=== PATIENT | male | born 1985 | race Caucasian/White ===

== ENCOUNTER 2018-07-20 20:54 | Emergency (ER) | payer OTHER ==
[2018-07-20] MEDS ORDERED: Lidocaine 1% 10 ML MDV INJECT ONE (20:57)
[2018-07-20] MEDS ORDERED: Diphtheria,Pertussis(Acell),Tetanus Vaccine 0.5 ML Syringe IM ONE (20:57)
--- NOTE | 2018-07-20 20:59 | EDM.PDOC ---
ED HPI GENERAL MEDICAL PROBLEM - General Stated Complaint: LACERATION ON HAND Time Seen by Provider: 07/20/18 20:59 Source of Information: Reports: Patient - History of Present Illness INITIAL COMMENTS - FREE TEXT/NARRATIVE: HISTORY AND PHYSICAL: History of present illness: [Patient presents with a puncture wound on the webbing between thumb and index finger from 48 hours prior, he was working on his pickup and stuck a PICC into his skin there is some mild redness and tenderness there is no exudate or open lesion no bleeding no fever nausea vomiting chills sweats ] Review of systems: As per history of present illness and below otherwise all systems reviewed and negative. Past medical history: As per history of present illness and as reviewed below otherwise noncontributory. Surgical history: As per history of present illness and as reviewed below otherwise noncontributory. Social history: No reported history of drug or alcohol abuse. Family history: As per history of present illness and as reviewed below otherwise noncontributory. Physical exam: HEENT: Atraumatic, normocephalic, pupils reactive, negative for conjunctival pallor or scleral icterus, mucous membranes moist, throat clear, neck supple, nontender, trachea midline. Lungs: Clear to auscultation, breath sounds equal bilaterally, chest nontender. Heart: S1S2, regular, negative for clicks, rubs, or JVD. Abdomen: Soft, nondistended, nontender. Negative for masses or hepatosplenomegaly. Negative for costovertebral tenderness. Pelvis: Stable nontender. Genitourinary: Deferred. Rectal: Deferred. Extremities: Atraumatic, negative for cords or calf pain. Neurovascular unremarkable. Neuro: Awake, alert, oriented. Cranial nerves II through XII unremarkable. Cerebellum unremarkable. Motor and sensory unremarkable throughout. Exam nonfocal. In as per history of present illness otherwise unremarkable Diagnostics: [] clinical Therapeutics: [] Keflex 500 by mouth twice a day #20 no refill Tetanus status is updated Impression: puncture wound ] Definitive disposition and diagnosis as appropriate pending reevaluation and review of above. Left Arm Pain Score (Numeric/FACES): 2 - Related Data Allergies Allergy/AdvReac Type Severity Reaction Status Date / Time No Known Allergies Allergy Verified 07/20/18 21:12 Home Meds: Home Meds . [No Known Home Meds] 07/20/18 [History] ED ROS GENERAL - Review of Systems Review Of Systems: See Below ED EXAM, GENERAL - Physical Exam Exam: See Below Course - Vital Signs Last Recorded V/S: Last Vital Signs Temp 98.0 F 07/20/18 21:00 Pulse 100 07/20/18 21:00 Resp 18 07/20/18 21:00 BP 178/109 H 07/20/18 21:00 Pulse Ox 100 07/20/18 21:00 - Orders/Labs/Meds Orders: Active Orders 24 hr Category Date Time Status EKG 12 Lead [EKG Documentation Completion] [RC] STAT Care 07/20/18 21:16 Active Vaccines to be Administered [RC] PER UNIT ROUTINE Care 07/20/18 20:57 Active Meds: Medications Discontinued Medications Generic Name Dose Route Start Last Admin Trade Name Freq PRN Reason Stop Dose Admin Diphtheria/Tetanus/Acell Pertussis 0.5 ml 07/20/18 20:57 Adacel IM 07/20/18 20:58 .ONCE ONE Lidocaine HCl 10 ml 07/20/18 20:57 Xylocaine 1% INJECT 07/20/18 20:58 ONETIME ONE Departure - Departure Time of Disposition: 21:21 Disposition: Home, Self-Care 01 Condition: Good Clinical Impression: Puncture wound - injury - Discharge Information Referrals: PCP,None [Primary Care Provider] - Additional Instructions: The following information is given to patients seen in the emergency department who are being discharged to home. This information is to outline your options for follow-up care. We provide all patients seen in our emergency department with a follow-up referral. The need for follow-up, as well as the timing and circumstances, are variable depending upon the specifics of your emergency department visit. If you don't have a primary care physician on staff, we will provide you with a referral. We always advise you to contact your personal physician following an emergency department visit to inform them of the circumstance of the visit and for follow-up with them and/or the need for any referrals to a consulting specialist. The emergency department will also refer you to a specialist when appropriate. This referral assures that you have the opportunity for follow-up care with a specialist. All of these measure are taken in an effort to provide you with optimal care, which includes your follow-up. Under all circumstances we always encourage you to contact your private physician who remains a resource for coordinating your care. When calling for follow-up care, please make the office aware that this follow-up is from your recent emergency room visit. If for any reason you are refused follow-up, please contact the [facility] emergency department at and asked to speak to the emergency department charge nurse. - My Orders Last 24 Hours: My Active Orders 07/20/18 20:57 Vaccines to be Administered [RC] PER UNIT ROUTINE 07/20/18 21:16 EKG 12 Lead [EKG Documentation Completion] [RC] STAT - Assessment/Plan Last 24 Hours: My Active Orders 07/20/18 20:57 Vaccines to be Administered [RC] PER UNIT ROUTINE 07/20/18 21:16 EKG 12 Lead [EKG Documentation Completion] [RC] STAT
== END 2018-07-20 21:41 | disposition home or self-care (01) ==
LOC: MW.ED 20:54
DX: S61.432A Puncture wound without foreign body of left hand, initial encounter (principal); W22.8XXA Striking against or struck by other objects, initial encounter; Z23 Encounter for immunization
CPT/HCPCS: 90471; 90715; 93005; 99283; 99283-25

== ENCOUNTER 2018-07-23 22:52 | Emergency (ER) | payer OTHER ==
--- NOTE | 2018-07-23 23:08 | EDM.PDOC ---
ED HPI GENERAL MEDICAL PROBLEM - General Chief Complaint: General Stated Complaint: PT HAS BODY PAIN Time Seen by Provider: 07/23/18 23:07 Source of Information: Reports: Patient - History of Present Illness INITIAL COMMENTS - FREE TEXT/NARRATIVE: HISTORY AND PHYSICAL: History of present illness: [Patient presents as he is concerned about tetanus], he has previous puncture wound on July 20 he did receive a tetanus update at that time and is on Keflex prophylaxis Has several nonspecific complaints such as intermittent jaw pain left arm pain 2 out of 10 again intermittent symptoms crampy in nature actively can also reproduce a muscle spasm in his left latissimus area otherwise patient is doing well in no apparent distress A shunt also has TMJ symptoms secondary to tooth grinding No fever nausea vomiting chills sweats no chest pain shortness breath headache dizziness palpitation no bowel or urine symptoms Review of systems: As per history of present illness and below otherwise all systems reviewed and negative. Past medical history: As per history of present illness and as reviewed below otherwise noncontributory. Surgical history: As per history of present illness and as reviewed below otherwise noncontributory. Social history: No reported history of drug or alcohol abuse. Family history: As per history of present illness and as reviewed below otherwise noncontributory. Physical exam: HEENT: Atraumatic, normocephalic, pupils reactive, negative for conjunctival pallor or scleral icterus, mucous membranes moist, throat clear, neck supple, nontender, trachea midline. Lungs: Clear to auscultation, breath sounds equal bilaterally, chest nontender. Heart: S1S2, regular, negative for clicks, rubs, or JVD. Abdomen: Soft, nondistended, nontender. Negative for masses or hepatosplenomegaly. Negative for costovertebral tenderness. Pelvis: Stable nontender. Genitourinary: Deferred. Rectal: Deferred. Extremities: Atraumatic, negative for cords or calf pain. Neurovascular unremarkable. Neuro: Awake, alert, oriented. Cranial nerves II through XII unremarkable. Cerebellum unremarkable. Motor and sensory unremarkable throughout. Exam nonfocal. Diagnostics: [CBC CMP UA ESR troponin CPK blood cultures 2 ] Therapeutics: [Day for 10 Keflex 500 by mouth twice a day prophylaxis ] Vasotec 1.25 mg IV She is following with Dr. Mishra tomorrow, will have him follow blood pressure and manage hypertension Impression: Medical screening exam History of puncture wound on July 20 Hypertension -on 2 separate occasions Definitive disposition and diagnosis as appropriate pending reevaluation and review of above. Left Generalized Pain Score (Numeric/FACES): 6 - Related Data Allergies Allergy/AdvReac Type Severity Reaction Status Date / Time No Known Allergies Allergy Verified 07/23/18 23:03 Home Meds: Home Meds cephALEXin [Keflex] 500 mg PO BID 07/23/18 [History] Past Medical History - Past Surgical History HEENT Surgical History: Reports: Tonsillectomy GI Surgical History: Reports: Appendectomy Social & Family History - Tobacco Use Years of Tobacco use: 20 Packs/Tins Daily: 1 - Caffeine Use Caffeine Use: Reports: None - Alcohol Use Days Per Week of Alcohol Use: 1 Number of Drinks Per Day: 8 Total Drinks Per Week: 8 - Recreational Drug Use Recreational Drug Use: No ED ROS GENERAL - Review of Systems Review Of Systems: See Below ED EXAM, GENERAL - Physical Exam Exam: See Below Course - Vital Signs Last Recorded V/S: Last Vital Signs Temp 98.2 F 07/23/18 23:01 Pulse 75 07/24/18 00:48 Resp 16 07/24/18 00:48 BP 161/102 H 07/24/18 00:48 Pulse Ox 98 07/24/18 00:48 - Orders/Labs/Meds Orders: Active Orders 24 hr Category Date Time Status EKG Documentation Completion [RC] STAT Care 07/23/18 22:55 Active CULTURE BLOOD [BC] Stat Lab 07/23/18 23:10 Received CULTURE BLOOD [BC] Stat Lab 07/23/18 23:20 Received Blood Culture x2 Reflex Set [OM.PC] Stat Oth 07/23/18 22:55 Ordered Labs: Laboratory Tests 07/23/18 07/23/18 07/23/18 Range/Units 23:10 23:10 23:10 WBC 6.00 (4.0-11.0) K/uL RBC 5.19 (4.50-5.90) M/uL Hgb 15.1 (13.0-17.0) g/dL Hct 43.6 (38.0-50.0) % MCV 84.0 (80.0-98.0) fL MCH 29.1 (27.0-32.0) pg MCHC 34.6 (31.0-37.0) g/dL RDW Std Deviation 40.9 (28.0-62.0) fl RDW Coeff of Ramírez 14 (11.0-15.0) % Plt Count 273 (150-400) K/uL MPV 9.50 (7.40-12.00) fL Neut % (Auto) 55.3 (48.0-80.0) % Lymph % (Auto) 34.0 (16.0-40.0) % [place] % (Auto) 5.8 (0.0-15.0) % Eos % (Auto) 4.2 (0.0-7.0) % Baso % (Auto) 0.7 (0.0-1.5) % Neut # (Auto) 3.3 (1.4-5.7) K/uL Lymph # (Auto) 2.0 (0.6-2.4) K/uL [place] # (Auto) 0.4 (0.0-0.8) K/uL Eos # (Auto) 0.3 (0.0-0.7) K/uL Baso # (Auto) 0.0 (0.0-0.1) K/uL Nucleated RBC % 0.0 /100WBC Nucleated RBCs # 0 K/uL ESR 15 H (0-14) mm/hr Sodium 135 L (136-148) mmol/L Potassium 3.9 (3.5-5.1) mmol/L Chloride 99 (98-107) mmol/L Carbon Dioxide 26.4 (21.0-32.0) mmol/L BUN 15 (7.0-18.0) mg/dL Creatinine 1.2 (0.8-1.3) mg/dL Est Cr Clr Drug Dosing 99.90 mL/min Estimated GFR (MDRD) > 60.0 ml/min Glucose 123 H (74-106) mg/dL Calcium 9.5 (8.5-10.1) mg/dL Total Bilirubin 1.1 H (0.2-1.0) mg/dL AST 33 (15-37) IU/L ALT 44 (14-63) IU/L Alkaline Phosphatase 73 (46-116) U/L Creatine Kinase 307 (26-308) U/L Troponin I < 0.050 (0.000-0.056) ng/mL Total Protein 8.5 H (6.4-8.2) g/dL Albumin 4.1 (3.4-5.0) g/dL Globulin 4.4 H (2.6-4.0) g/dL Albumin/Globulin Ratio 0.9 (0.9-1.6) Urine Color Urine Appearance Urine pH (5.0-8.0) Ur Specific [place] (1.001-1.035) Urine Protein (NEGATIVE) mg/dL Urine Glucose (UA) (NEGATIVE) mg/dL Urine Ketones (NEGATIVE) mg/dL Urine Occult Blood (NEGATIVE) Urine Nitrite (NEGATIVE) Urine Bilirubin (NEGATIVE) Urine Urobilinogen (<2.0) EU/dL Ur Leukocyte Esterase (NEGATIVE) 07/24/18 Range/Units 00:05 WBC (4.0-11.0) K/uL RBC (4.50-5.90) M/uL Hgb (13.0-17.0) g/dL Hct (38.0-50.0) % MCV (80.0-98.0) fL MCH (27.0-32.0) pg MCHC (31.0-37.0) g/dL RDW Std Deviation (28.0-62.0) fl RDW Coeff of Ramírez (11.0-15.0) % Plt Count (150-400) K/uL MPV (7.40-12.00) fL Neut % (Auto) (48.0-80.0) % Lymph % (Auto) (16.0-40.0) % [place] % (Auto) (0.0-15.0) % Eos % (Auto) (0.0-7.0) % Baso % (Auto) (0.0-1.5) % Neut # (Auto) (1.4-5.7) K/uL Lymph # (Auto) (0.6-2.4) K/uL [place] # (Auto) (0.0-0.8) K/uL Eos # (Auto) (0.0-0.7) K/uL Baso # (Auto) (0.0-0.1) K/uL Nucleated RBC % /100WBC Nucleated RBCs # K/uL ESR (0-14) mm/hr Sodium (136-148) mmol/L Potassium (3.5-5.1) mmol/L Chloride (98-107) mmol/L Carbon Dioxide (21.0-32.0) mmol/L BUN (7.0-18.0) mg/dL Creatinine (0.8-1.3) mg/dL Est Cr Clr Drug Dosing mL/min Estimated GFR (MDRD) ml/min Glucose (74-106) mg/dL Calcium (8.5-10.1) mg/dL Total Bilirubin (0.2-1.0) mg/dL AST (15-37) IU/L ALT (14-63) IU/L Alkaline Phosphatase (46-116) U/L Creatine Kinase (26-308) U/L Troponin I (0.000-0.056) ng/mL Total Protein (6.4-8.2) g/dL Albumin (3.4-5.0) g/dL Globulin (2.6-4.0) g/dL Albumin/Globulin Ratio (0.9-1.6) Urine Color YELLOW Urine Appearance CLEAR Urine pH 5.5 (5.0-8.0) Ur Specific [place] 1.020 (1.001-1.035) Urine Protein NEGATIVE (NEGATIVE) mg/dL Urine Glucose (UA) NEGATIVE (NEGATIVE) mg/dL Urine Ketones NEGATIVE (NEGATIVE) mg/dL Urine Occult Blood NEGATIVE (NEGATIVE) Urine Nitrite NEGATIVE (NEGATIVE) Urine Bilirubin NEGATIVE (NEGATIVE) Urine Urobilinogen 0.2 (<2.0) EU/dL Ur Leukocyte Esterase NEGATIVE (NEGATIVE) Meds: Medications Discontinued Medications Generic Name Dose Route Start Last Admin Trade Name [place] PRN Reason Stop Dose Admin Enalaprilat 1.25 mg 07/24/18 00:21 07/24/18 00:37 Vasotec Iv IVPUSH 07/24/18 00:22 1.25 mg ONETIME ONE Administration Sodium Chloride 1,000 mls @ 999 mls/hr 07/23/18 22:55 07/23/18 23:28 Normal Saline IV 07/23/18 23:55 999 mls/hr STAT ONE Administration Departure - Departure Time of Disposition: 00:58 Disposition: Home, Self-Care 01 Condition: Good Clinical Impression: Encounter for medical screening examination, Hypertension, TMJ (dislocation of temporomandibular joint) - Discharge Information Referrals: PCP,None [Primary Care Provider] - Forms: ED Department Discharge Additional Instructions: The following information is given to patients seen in the emergency department who are being discharged to home. This information is to outline your options for follow-up care. We provide all patients seen in our emergency department with a follow-up referral. The need for follow-up, as well as the timing and circumstances, are variable depending upon the specifics of your emergency department visit. If you don't have a primary care physician on staff, we will provide you with a referral. We always advise you to contact your personal physician following an emergency department visit to inform them of the circumstance of the visit and for follow-up with them and/or the need for any referrals to a consulting specialist. The emergency department will also refer you to a specialist when appropriate. This referral assures that you have the opportunity for follow-up care with a specialist. All of these measure are taken in an effort to provide you with optimal care, which includes your follow-up. Under all circumstances we always encourage you to contact your private physician who remains a resource for coordinating your care. When calling for follow-up care, please make the office aware that this follow-up is from your recent emergency room visit. If for any reason you are refused follow-up, please contact the [facility] emergency department at and asked to speak to the emergency department charge nurse. - My Orders Last 24 Hours: My Active Orders 07/23/18 22:55 EKG Documentation Completion [RC] STAT Blood Culture x2 Reflex Set [OM.PC] Stat 07/23/18 23:10 CULTURE BLOOD [BC] Stat 07/23/18 23:20 CULTURE BLOOD [BC] Stat - Assessment/Plan Last 24 Hours: My Active Orders 07/23/18 22:55 EKG Documentation Completion [RC] STAT Blood Culture x2 Reflex Set [OM.PC] Stat 07/23/18 23:10 CULTURE BLOOD [BC] Stat 07/23/18 23:20 CULTURE BLOOD [BC] Stat
[2018-07-23] MEDS: Sodium Chloride 0.9% 1,000 ML IV ONE (23:28)
[2018-07-23 23:50] LABS: CHLORIDE,CL 99 mmol/L (98-107); SODIUM,NA 135 mmol/L (136-148)
--- NOTE | 2018-07-23 23:57 | CR ---
Indication: Evaluate for foreign body Technique: Two views left hand Comparison: None Findings: Bones: Alignment is normal. No fractures or bone lesions. Joint spaces: Unremarkable. Soft tissues: There is a 5 mm round metallic density within the soft tissues of the palm at the level of the base of the 3rd metacarpal. Impression: Impression:5 mm round metallic density within the soft tissues of the palm at the level of the base of the 3rd metacarpal. No acute osseous abnormality identified. Dictated by Xin Peraza MD @ Jul 23 2018 11:54PM Signed by Dr. Xin Peraza @ Jul 23 2018 11:55PM
[2018-07-24] MEDS: Enalaprilat 1.25 MG/ML SDV IVPUSH ONE (00:37)
== END 2018-07-24 01:13 | disposition home or self-care (01) ==
LOC: MW.ED 22:52
DX: S03.00XA Dislocation of jaw, unspecified side, initial encounter (principal); I10 Essential (primary) hypertension; X58.XXXA Exposure to other specified factors, initial encounter
CPT/HCPCS: 36415; 73120; 80053; 81003; 82550; 84484; 85025; 85652; 87040; 87804; 93005; 96361; 96374; 99284; J7040

== ENCOUNTER 2018-08-05 10:10 | Observation (INO) | payer OTHER ==
[2018-08-05] MEDS ORDERED: Sodium Chloride 0.9% 1,000 ML IV ONE (10:19)
[2018-08-05] MEDS ORDERED: Aspirin 81 MG Tab.Chew PO ONE (10:19)
[2018-08-05] MEDS ORDERED: Sodium Chloride 0.9% 2.5 ML Syringe FLUSH PRN (10:19)
[2018-08-05] MEDS ORDERED: Sodium Chloride 0.9% 10 ML Syringe FLUSH PRN (10:19)
--- NOTE | 2018-08-05 10:27 | EDM.PDOC ---
ED HPI GENERAL MEDICAL PROBLEM - General Chief Complaint: Chest Pain Stated Complaint: CHEST PAIN Time Seen by Provider: 08/05/18 10:11 - History of Present Illness INITIAL COMMENTS - FREE TEXT/NARRATIVE: HISTORY AND PHYSICAL: History of present illness: The patient is a 33-year-old male who presents with complaints of intermittent left upper chest wall pain and left axillary pain that has been waxing and waning in intensity but never gone over the last 1 week. The patient was initially seen here on July 20 after having a puncture wound to his left hand that had occurred 48 hours prior to that ED visit. He was treated for that wound and return to the ED on July 23 complaining of multiple areas of muscle aches and pains including his left upper extremity his jaw his chest area and had a workup which was negative. The patient had a scheduled follow-up appointment with Dr. Mishra at [facility] which he did go to and on his ER visits he was noted to be hypertensive. Dr. Mishar agreed that he needed to be medicated for hypertension and started him on medications and the patient says he has been taking that for the last 1 week. The started that medication coincides with this more focused chest tightness and we're feeling in his chest. He says he still has the intermittent discomfort in his left arm which is mostly in the forearm when he is using his hand and he says it just feels strange and weird. He has no numbness or tingling and noted swelling of that left arm. He's had some upper respiratory symptoms which he describes as just a mild cold and he is not concerned about that. He says that he never is pain- free of this weirdness and tightness in the discomfort is always in the upper left chest wall and underneath his armpit. He says it is better in the morning when he wakes up and currently in the ED he is rating it as a 4/10. He is not taking anything except [id number] ibuprofen for it. He says that yesterday he felt a little bit lightheaded but he didn't pass out or blackout and he doesn't feel that way today. Is no abdominal pain no shortness of breath no vomiting and no diarrhea. He has no other extremity complaints and his left upper extremity is not weak. The patient's only social history is of occasional alcohol and he chews tobacco and he has no significant family history for cardiac disease. The patient says he did have a cardiac workup with a stress test 6 or 7 years ago that was negative. Patient keeps reiterating that he is normally so healthy and after the puncture wound to his hand he feels like some many things are changing and it is all on the left side in his left arm and left chest wall. He denies any new or recent trauma to those areas. The patient does tell nursing that the ibuprofen does help the pain a great deal and he says that the worse the pain has ever been was last evening but he did not recommend any to the ibuprofen and improved Review of systems: As per history of present illness and below otherwise all systems reviewed and negative. Past medical history: As per history of present illness and as reviewed below otherwise noncontributory. Surgical history: As per history of present illness and as reviewed below otherwise noncontributory. Social history: No reported history of drug or alcohol abuse. Family history: As per history of present illness and as reviewed below otherwise noncontributory. Physical exam: General: Well-developed well-nourished man who is nontoxic and vital signs are noted by me HEENT: Atraumatic, normocephalic, pupils reactive, negative for conjunctival pallor or scleral icterus, mucous membranes moist, throat clear, neck supple, nontender, trachea midline. Lungs: Clear to auscultation, breath sounds equal bilaterally, chest wall in the upper left anterior aspect and extending into the axillary area with tenderness without defects deformities or abnormalities. Heart: S1S2, regular, negative for clicks, rubs, or JVD. Abdomen: Soft, nondistended, nontender. Negative for masses or hepatosplenomegaly. Negative for costovertebral tenderness. Pelvis: Stable nontender. Genitourinary: Deferred. Rectal: Deferred. Extremities: Atraumatic, negative for cords or calf pain. Neurovascular unremarkable. No pedal edema or leg asymmetry. The upper extremities are also symmetrical and the left forearm and entire left upper extremity exhibits no signs of any venous stasis redness soft tissue changes or swelling. When I palpate the patient's forearm he said there is some discomfort but there is no fullness of the compartments or abnormalities appreciated. Neurovascular is intact throughout this extremity Neuro: Awake, alert, oriented. Cranial nerves II through XII unremarkable. Cerebellum unremarkable. Motor and sensory unremarkable throughout. Exam nonfocal. Diagnostics: EKG CBC CMP INR troponin chest x-ray Therapeutics: IV O2 monitor aspirin nitroglycerin SL,Nitropaste After 3 sublingual nitroglycerin the pain is now a 1/10 and the patient feels significantly improved. We will place Nitropaste. His blood pressure is also normalized to 137/83. I will continue to monitor his test results and disposition appropriately Patient says that he will episodically have some discomfort under his left arm in his chest and on the right side of his body but overall it is significantly improved. I discussed with him and family at bedside all testing results and recommended observation admission when she is agreeable to. This case with Dr. Haskins our hospitalist and plan for observation admission Impression: Episodic atypical chest pain Definitive disposition and diagnosis as appropriate pending reevaluation and review of above. Left arm/Left shoulder/chest Pain Score (Numeric/FACES): 4 - Related Data Allergies Allergy/AdvReac Type Severity Reaction Status Date / Time No Known Allergies Allergy Verified 08/05/18 10:19 Home Meds: Home Meds amLODIPine [Norvasc] 5 mg PO DAILY 08/05/18 [History] Past Medical History - Past Surgical History HEENT Surgical History: Reports: Tonsillectomy GI Surgical History: Reports: Appendectomy Social & Family History - Caffeine Use Caffeine Use: Reports: None ED ROS GENERAL - Review of Systems Review Of Systems: ROS reveals no pertinent complaints other than HPI. ED EXAM, GENERAL - Physical Exam Exam: See Below (see dictation) Course - Vital Signs Last Recorded V/S: Last Vital Signs Temp 36.1 C 08/05/18 10:20 Pulse 71 08/05/18 11:24 Resp 18 08/05/18 11:24 BP 158/87 H 08/05/18 11:24 Pulse Ox 99 08/05/18 11:24 - Orders/Labs/Meds Orders: Active Orders 24 hr Category Date Time Status Patient Status [ADT] Stat ADT 08/05/18 11:39 Ordered Cardiac Monitoring [RC] . DIRECTED Care 08/05/18 10:19 Active EKG Documentation Completion [RC] STAT Care 08/05/18 10:19 Active Oxygen Therapy, ED [RC] ASDIRECTED Care 08/05/18 10:19 Active Pulse Oximetry [RC] ASDIRECTED Care 08/05/18 10:19 Active Chest 1V Frontal [CR] Stat Exams 08/05/18 10:19 Taken Ketorolac [Toradol] Med 08/05/18 11:39 Once 30 mg IVPUSH ONETIME ONE Sodium Chloride 0.9% [Saline Flush] Med 08/05/18 10:19 Active 10 ml FLUSH ASDIRECTED PRN Sodium Chloride 0.9% [Saline Flush] Med 08/05/18 10:19 Active 2.5 ml FLUSH ASDIRECTED PRN Saline Lock Insert [OM.PC] Stat Oth 08/05/18 10:19 Ordered Medication Orders Sodium Chloride (Saline Flush) 10 ml FLUSH ASDIRECTED PRN PRN Reason: Keep Vein Open Last Admin: 08/05/18 10:31 Dose: 10 ml Sodium Chloride (Saline Flush) 2.5 ml FLUSH ASDIRECTED PRN PRN Reason: Keep Vein Open Last Admin: 08/05/18 10:31 Dose: 2.5 ml Labs: Laboratory Tests 08/05/18 08/05/18 Range/Units 10:29 10:29 WBC 5.46 (4.0-11.0) K/uL RBC 5.44 (4.50-5.90) M/uL Hgb 15.8 (13.0-17.0) g/dL Hct 46.1 (38.0-50.0) % MCV 84.7 (80.0-98.0) fL MCH 29.0 (27.0-32.0) pg MCHC 34.3 (31.0-37.0) g/dL RDW Std Deviation 41.9 (28.0-62.0) fl RDW Coeff of Ramírez 14 (11.0-15.0) % Plt Count 283 (150-400) K/uL MPV 9.40 (7.40-12.00) fL Neut % (Auto) 53.6 (48.0-80.0) % Lymph % (Auto) 34.4 (16.0-40.0) % [place] % (Auto) 8.2 (0.0-15.0) % Eos % (Auto) 3.1 (0.0-7.0) % Baso % (Auto) 0.7 (0.0-1.5) % Neut # (Auto) 2.9 (1.4-5.7) K/uL Lymph # (Auto) 1.9 (0.6-2.4) K/uL [place] # (Auto) 0.5 (0.0-0.8) K/uL Eos # (Auto) 0.2 (0.0-0.7) K/uL Baso # (Auto) 0.0 (0.0-0.1) K/uL Nucleated RBC % 0.0 /100WBC Nucleated RBCs # 0 K/uL Sodium 139 (136-148) mmol/L Potassium 4.2 (3.5-5.1) mmol/L Chloride 103 (98-107) mmol/L Carbon Dioxide 24.6 (21.0-32.0) mmol/L BUN 13 (7.0-18.0) mg/dL Creatinine 1.2 (0.8-1.3) mg/dL Est Cr Clr Drug Dosing 99.90 mL/min Estimated GFR (MDRD) > 60.0 ml/min Glucose 97 (74-106) mg/dL Calcium 9.4 (8.5-10.1) mg/dL Total Bilirubin 0.7 (0.2-1.0) mg/dL AST 29 (15-37) IU/L ALT 54 (14-63) IU/L Alkaline Phosphatase 66 (46-116) U/L Troponin I < 0.050 (0.000-0.056) ng/mL Total Protein 8.6 H (6.4-8.2) g/dL Albumin 4.3 (3.4-5.0) g/dL Globulin 4.3 H (2.6-4.0) g/dL Albumin/Globulin Ratio 1.0 (0.9-1.6) Meds: Medications Generic Name Dose Route Start Last Admin Trade Name Freq PRN Reason Stop Dose Admin Sodium Chloride 10 ml 08/05/18 10:08/05/18 10:31 Saline Flush FLUSH 10 ml ASDIRECTED PRN Administration Keep Vein Open Sodium Chloride 2.5 ml 08/05/18 10:19 08/05/18 10:31 Saline Flush FLUSH 2.5 ml ASDIRECTED PRN Administration Keep Vein Open Discontinued Medications Generic Name Dose Route Start Last Admin Trade Name Freq PRN Reason Stop Dose Admin Aspirin 324 mg 08/05/18 10:19 08/05/18 10:31 Aspirin PO 08/05/18 10:20 324 mg ONETIME ONE Administration Sodium Chloride 1,000 mls @ 999 mls/hr 08/05/18 10:19 08/05/18 10:31 Normal Saline IV 08/05/18 11:19 999 mls/hr STAT ONE Administration Nitroglycerin 0.4 mg 08/05/18 10:19 08/05/18 10:41 Nitrostat SL 0.4 mg Q5M PRN Administration Chest Pain Nitroglycerin 0.5 gm 08/05/18 10:49 08/05/18 11:04 Nitro-Bid 2% TOP 08/05/18 10:50 0.5 gm ONETIME ONE Administration Departure - Departure Time of Disposition: 11:41 Disposition: Refer to Observation Condition: Good Clinical Impression: Atypical chest pain - Discharge Information Referrals: PCP,Unknown [Primary Care Provider] - Forms: ED Department Discharge - My Orders Last 24 Hours: My Active Orders 08/05/18 10:19 Cardiac Monitoring [RC] . DIRECTED EKG Documentation Completion [RC] STAT Oxygen Therapy, ED [RC] ASDIRECTED Pulse Oximetry [RC] ASDIRECTED Chest 1V Frontal [CR] Stat Sodium Chloride 0.9% [Saline Flush] 10 ml FLUSH ASDIRECTED PRN Sodium Chloride 0.9% [Saline Flush] 2.5 ml FLUSH ASDIRECTED PRN Saline Lock Insert [OM.PC] Stat 08/05/18 11:39 Patient Status [ADT] Stat Ketorolac [Toradol] 30 mg IVPUSH ONETIME ONE - Assessment/Plan Last 24 Hours: My Active Orders 08/05/18 10:19 Cardiac Monitoring [RC] . DIRECTED EKG Documentation Completion [RC] STAT Oxygen Therapy, ED [RC] ASDIRECTED Pulse Oximetry [RC] ASDIRECTED Chest 1V Frontal [CR] Stat Sodium Chloride 0.9% [Saline Flush] 10 ml FLUSH ASDIRECTED PRN Sodium Chloride 0.9% [Saline Flush] 2.5 ml FLUSH ASDIRECTED PRN Saline Lock Insert [OM.PC] Stat 08/05/18 11:39 Patient Status [ADT] Stat Ketorolac [Toradol] 30 mg IVPUSH ONETIME ONE
[2018-08-05] MEDS: Nitroglycerin 0.4 MG Tab.SL SL PRN ×3 (10:30→10:41)
[2018-08-05] MEDS ORDERED: Nitroglycerin 2% Oint 1 GM UD Packet TOP ONE (10:49)
[2018-08-05 11:03] LABS: CHLORIDE,CL 103 mmol/L (98-107); SODIUM,NA 139 mmol/L (136-148)
[2018-08-05] MEDS ORDERED: Ketorolac 30 MG/ML SDV IVPUSH ONE (11:39)
--- NOTE | 2018-08-05 11:59 | CR ---
INDICATION: Pain shortness of breath TECHNIQUE: Single view chest. FINDINGS: The lungs are clear. The heart, mediastinum and pulmonary vessels are of normal size. There is no evidence of pleural disease. IMPRESSION: Negative chest. Dictated by Jennifer Evans MD @ Aug 05 2018 11:56AM Signed by Dr. Jennifer Evans @ Aug 05 2018 11:56AM
[2018-08-05] MEDS ORDERED: Acetaminophen 325 MG Tab PO PRN (12:30)
[2018-08-05] MEDS ORDERED: Ondansetron 4 MG Tab.DIS PO PRN (12:30)
[2018-08-05 13:00] LABS: HEMOGLOBIN A1C 5.5 % (4.5-6.2)
[2018-08-05] MEDS: amLODIPine 5 MG Tab PO SCH (13:16)
--- NOTE | 2018-08-05 13:59 | PCM.HP ---
<Suly Kiser M - Last Filed: 08/05/18 16:34> H&P History of Present Illness - General Date of Service: 08/05/18 Admit Problem/Dx: Admission Diagnosis/Problem Admission Diagnosis/Problem Chest pain Source of Information: Patient, Family (, Tammy at bedside) History Limitations: Reports: No Limitations - History of Present Illness Initial Comments - Free Text/Narative: This 33 year old male with pmh of HTN presented to the ED with complaints of atypical chest pain. He reports this pain and overall not feeling well started after he punctured the web space between the L thumb and secondary finger on July 20. He reports upper L sided chest pain and tightness, worsens with deep breathing and felt better with limited movement of L arm and chest. Ibuprofen did help make pain more tolerable and take the edge off. He reports the pain is located just below clavicle on L, radiates to the L axilla up to his jaw and L anterior neck, it is a tight squeezing pain. He denies any injury or repetitive activity recently. He reports a R sided chest pain before he punctured his hand last week, but that has not returned. He reports associated lightheadedness and dizziness, with mild headache. No blurred vision or double vision. Denies shortness of breath, diaphoresis or palpitations. He denies fevers or respiratory concerns. He denies abdominal pain or diarrhea or constipation. No urinary symptoms. No focal neurologic deficits. No posterior neck pain. he does report L sided neck pain, on sternocleidomastoid muscle. He reports chewing tobacco use, 1/2 tin daily, used to smoke but changed to chew. No real interest in quitting now. Rare alcohol use and no recreational drug use. He denies family history of cardiac disease. No personal history of CAD or DM. He had stress test a couple years ago in [place], reports it was normal but he was started on Bystolic for HTN. He stopped taking it because he made him very tired and fatigued. The puncture wound to L hand is completely healed. No erythema or drainage noted. No pain to webbing or to movement of hand. Injury was on July 18, he came to the ED and was given Tentus vaccine on July 20 and also received Keflex. He reports he felt good until he finished his Keflex prescription approximately 3-4 days ago and the pain continued to increase to the point he returns today. In the ED Labwork WNL. Troponin negative. EKG, SR with no acute ST changes or ischemic changes. BP on arrival noted to be 160/115s. He was treated with ASA 324 mg , Nitro x3. he reports with the nitro it helped calm the pain and brought his BP down. He felt improved. He was admitted for observation for atypical chest pain rule out ACS. PCP, Dr Mishra. I did speak with Dr Mishra in regards to admission and clinic visit on 07/24. He reports he was going to increase Amlodipine to 10 mg if BPs were consistently elevated beyond 140/90s. Patient reports that BP has been 140- 150/90s since start Amlodipine at home. Left arm/Left shoulder/chest Pain Score (Numeric/FACES): 0 - Related Data Allergies/Adverse Reactions: Allergies Allergy/AdvReac Type Severity Reaction Status Date / Time No Known Allergies Allergy Verified 08/05/18 10:19 Home Medications: Home Meds amLODIPine [Norvasc] 5 mg PO DAILY 08/05/18 [History] Past Medical History Cardiovascular History: Reports: Hypertension. Denies: Afib, Blood Clots/VTE/ DVT, CAD, IN Respiratory History: Reports: None. Denies: Asthma, COPD, PE Gastrointestinal History: Reports: None. Denies: GERD Genitourinary History: Reports: None. Denies: Chronic Renal Insuffiency Musculoskeletal History: Reports: None Neurological History: Reports: None. Denies: CVA, TIA Psychiatric History: Reports: Anxiety Endocrine/Metabolic History: Reports: Obesity/BMI 30+. Denies: Diabetes, Type II, Hypothyroidism - Infectious Disease History Infectious Disease History: Reports: Chicken Pox - Past Surgical History HEENT Surgical History: Reports: Tonsillectomy Cardiovascular Surgical History: Reports: None GI Surgical History: Reports: Appendectomy Musculoskeletal Surgical History: Reports: Knee Replacement, Other (See Below) Other Musculoskeletal Surgeries/Procedures:: right knee repair Social & Family History - Family History Family Medical History: Noncontributory - Tobacco Use Smoking Status *Q: Former Smoker Tobacco Use Within Last Twelve Months: Smokeless Tobacco Second Hand Smoke Exposure: No - Caffeine Use Caffeine Use: Reports: Energy Drinks, Soda - Alcohol Use Alcohol Use Frequency: Rarely, Socially - Recreational Drug Use Recreational Drug Use: No - Living Situation & Occupation Living situation: Reports: Occupation: Employed H&P Review of Systems - Review of Systems: Review Of Systems: See Below General: Reports: No Symptoms. Denies: Fever, Chills, Malaise, Weakness HEENT: Reports: No Symptoms (anterior neck stiffness, tenderness to palpation), Other. Denies: Hearing Changes, Sinus Congestion, Visual Changes Pulmonary: Reports: No Symptoms. Denies: Shortness of Breath, Wheezing Cardiovascular: Reports: Chest Pain (mainly to palpation to L upper chest chest) . Denies: Lightheadedness Gastrointestinal: Reports: No Symptoms. Denies: Abdominal Pain, Black Stool, Diarrhea, Nausea, Vomiting Genitourinary: Reports: No Symptoms. Denies: Dysuria Musculoskeletal: Reports: Neck Pain (L side of neck, feels it is stiff, muscle tight) Skin: Reports: No Symptoms, Wound Psychiatric: Reports: No Symptoms Immunologic: Reports: No Symptoms Exam - Exam Exam: See Below - Vital Signs Vital Signs: Last Vital Signs Temp 97.9 F 08/05/18 12:30 Pulse 78 08/05/18 12:30 Resp 16 08/05/18 12:30 BP 168/108 H 08/05/18 13:16 Pulse Ox 96 08/05/18 12:30 Weight: 111.175 kg - Exam Quality Assessment: DVT Prophylaxis. No: Supplemental Oxygen General: Alert, Oriented, Cooperative HEENT: Conjunctiva Clear, Mucosa Moist & [place], Normal Nasal Septum, Posterior Pharynx Clear Neck: Supple, Trachea Midline, +2 Carotid Pulse wo Bruit, Full Range of Motion ( L sternocleidomastoi and TMJ tender to palpation) Lungs: Clear to Auscultation, Normal Respiratory Effort. No: Wheezing Cardiovascular: Regular Rate, Regular Rhythm GI/Abdominal Exam: Normal Bowel Sounds, Soft, Non-Tender Back Exam: Normal Inspection, Full Range of Motion Extremities: Normal Inspection, Normal Range of Motion, No Pedal Edema, Other ( very tender upper chest wall, sternocleidomastoid on L and under axilla. Feels tightening and pain with muscles.) Neurological: Cranial Nerves Intact, Reflexes Equal Bilateral Neuro Extensive - Mental Status: Alert, Oriented x3 Neuro Extensive - Motor, Sensory, Reflexes: CN II-XII Intact, Normal Gait Psychiatric: Alert, Normal Affect, Normal Mood - Patient Data Lab Results Last 24 hrs: Laboratory Results - last 24 hr 08/05/18 08/05/18 08/05/18 Range/Units 10:29 10:29 10:29 WBC 5.46 (4.0-11.0) K/uL RBC 5.44 (4.50-5.90) M/uL Hgb 15.8 (13.0-17.0) g/dL Hct 46.1 (38.0-50.0) % MCV 84.7 (80.0-98.0) fL MCH 29.0 (27.0-32.0) pg MCHC 34.3 (31.0-37.0) g/dL RDW Std Deviation 41.9 (28.0-62.0) fl RDW Coeff of Ramírez 14 (11.0-15.0) % Plt Count 283 (150-400) K/uL MPV 9.40 (7.40-12.00) fL Neut % (Auto) 53.6 (48.0-80.0) % Lymph % (Auto) 34.4 (16.0-40.0) % Bonner % (Auto) 8.2 (0.0-15.0) % Eos % (Auto) 3.1 (0.0-7.0) % Baso % (Auto) 0.7 (0.0-1.5) % Neut # (Auto) 2.9 (1.4-5.7) K/uL Lymph # (Auto) 1.9 (0.6-2.4) K/uL Bonner # (Auto) 0.5 (0.0-0.8) K/uL Eos # (Auto) 0.2 (0.0-0.7) K/uL Baso # (Auto) 0.0 (0.0-0.1) K/uL Nucleated RBC % 0.0 /100WBC Nucleated RBCs # 0 K/uL Sodium 139 (136-148) mmol/L Potassium 4.2 (3.5-5.1) mmol/L Chloride 103 (98-107) mmol/L Carbon Dioxide 24.6 (21.0-32.0) mmol/L BUN 13 (7.0-18.0) mg/dL Creatinine 1.2 (0.8-1.3) mg/dL Est Cr Clr Drug Dosing 99.90 mL/min Estimated GFR (MDRD) > 60.0 ml/min Glucose 97 (74-106) mg/dL Hemoglobin A1c 5.5 (4.5-6.2) % Calcium 9.4 (8.5-10.1) mg/dL Total Bilirubin 0.7 (0.2-1.0) mg/dL AST 29 (15-37) IU/L ALT 54 (14-63) IU/L Alkaline Phosphatase 66 (46-116) U/L Troponin I < 0.050 (0.000-0.056) ng/mL Total Protein 8.6 H (6.4-8.2) g/dL Albumin 4.3 (3.4-5.0) g/dL Globulin 4.3 H (2.6-4.0) g/dL Albumin/Globulin Ratio 1.0 (0.9-1.6) Result Diagrams: 08/05/18 10:29 08/05/18 10:29 EKG INTERPRETATION EKG Date: 08/05/18 Rhythm: NSR Rate (Beats/Min): 74 P-Wave: Present QRS: Normal ST-T: Normal QT: Normal - Problem List (1) Atypical chest pain SNOMED Code(s): 738281985 ICD Code: R07.89 - OTHER CHEST PAIN Status: Acute Current Visit: Yes (2) Hypertension SNOMED Code(s): 02482184 ICD Code: I10 - ESSENTIAL (PRIMARY) HYPERTENSION Status: Acute Current Visit: No (3) Puncture wound - injury SNOMED Code(s): 112885938 ICD Code: T14.8XXA - OTHER INJURY OF UNSPECIFIED BODY REGION, INITIAL ENCOUNTER Status: Acute Current Visit: No (4) Clostridial tetanus SNOMED Code(s): 24597905 ICD Code: A35 - OTHER TETANUS Status: Suspected Current Visit: Yes Problem List Initiated/Reviewed/Updated: No Orders Last 24hrs: Active Orders 24 hr Category Date Time Status Patient Status [ADT] Stat ADT 08/05/18 11:39 Active Antiembolic Devices [RC] PER UNIT ROUTINE Care 08/05/18 12:30 Active Cardiac Monitoring [RC] . DIRECTED Care 08/05/18 10:19 Active Communication Order [RC] ROUTINE Care 08/05/18 12:44 Active EKG Documentation Completion [RC] STAT Care 08/05/18 10:19 Active Intake and Output [RC] Q12H Care 08/05/18 12:30 Active Oxygen Therapy [RC] PRN Care 08/05/18 12:30 Active Oxygen Therapy, ED [RC] ASDIRECTED Care 08/05/18 10:19 Active Pulse Oximetry [RC] ASDIRECTED Care 08/05/18 10:19 Active Telemetry Monitoring [Cardiac Monitoring] [RC] . Care 08/05/18 12:46 Active DIRECTED Up ad Inez [RC] ASDIRECTED Care 08/05/18 12:30 Active VTE/DVT Education [RC] PER UNIT ROUTINE Care 08/05/18 12:30 Active Vital Signs [RC] Q4H Care 08/05/18 12:30 Active Heart Healthy Diet [DIET] Diet 08/05/18 Lunch Active LIPID PANEL [CHEM] AM Lab 08/06/18 05:11 Ordered TROPONIN I [CHEM] Q6H Lab 08/05/18 16:30 Ordered TROPONIN I [CHEM] Q6H Lab 08/05/18 22:30 Ordered Acetaminophen [Tylenol] Med 08/05/18 12:30 Active 650 mg PO Q4H PRN Ondansetron [Zofran ODT] Med 08/05/18 12:30 Active 4 mg PO Q4H PRN Sodium Chloride 0.9% [Saline Flush] Med 08/05/18 10:19 Active 10 ml FLUSH ASDIRECTED PRN Sodium Chloride 0.9% [Saline Flush] Med 08/05/18 10:19 Active 2.5 ml FLUSH ASDIRECTED PRN amLODIPine [Norvasc] Med 08/05/18 12:46 Active 10 mg PO DAILY Saline Lock Insert [OM.PC] Stat Oth 08/05/18 10:19 Ordered Sequential Compression Device [OM.PC] Per Unit Routine Oth 08/05/18 12:30 Ordered Resuscitation Status Routine Resus Stat 08/05/18 12:30 Ordered Medication Orders Acetaminophen (Tylenol) 650 mg PO Q4H PRN PRN Reason: Pain Amlodipine Besylate (Norvasc) 10 mg PO DAILY [facility] Last Admin: 08/05/18 13:16 Dose: 10 mg Ondansetron HCl (Zofran Odt) 4 mg PO Q4H PRN PRN Reason: nausea, able to take PO Sodium Chloride (Saline Flush) 10 ml FLUSH ASDIRECTED PRN PRN Reason: Keep Vein Open Last Admin: 08/05/18 10:31 Dose: 10 ml Sodium Chloride (Saline Flush) 2.5 ml FLUSH ASDIRECTED PRN PRN Reason: Keep Vein Open Last Admin: 08/05/18 10:31 Dose: 2.5 ml Assessment/Plan Comment:: This 33 year old male admitted with atypical chest pain and suspected tetanus 1. Atypical chest pain: Trend troponins. Monitor on telemetry overnight. A1c WNL. Lipid panel in the am. Likely recommend stress test as outpatient. 2. Suspected local tetanus: Already received Tetanus vaccine on July 20. Will start Flagyl 500 mg IV every 6 hours and monitor. No respiratory concerns currently. Diazepam for muscle spasms PRN. CPK WNL. 3. HTN: Elevated with episodes of pain. Will increase home Amlodipine to 10 mg daily. Monitor. VTE prophylaxis: SCDs Dispo: 1-2 days pending improvement. <Samuel Haskins - Last Filed: 08/05/18 19:06> H&P History of Present Illness - General Admit Problem/Dx: Admission Diagnosis/Problem Admission Diagnosis/Problem Chest pain I have seen and examine the patient independently of Suly Kiser CNP and have discussed the case with her. I agree with the assessment and plan of care for this patient as outlined by her. Please see orders. MRI of left upper extremity ordered to rule out deep tissue infection. Chest pain not likely cardiac in nature. Exam - Vital Signs Vital Signs: Last Vital Signs Temp 36.7 C 08/05/18 16:30 Pulse 79 08/05/18 16:30 Resp 16 08/05/18 16:30 BP 154/82 H 08/05/18 16:30 Pulse Ox 97 08/05/18 16:30 - Patient Data Lab Results Last 24 hrs: Laboratory Results - last 24 hr 08/05/18 08/05/18 08/05/18 Range/Units 10:29 10:29 10:29 WBC 5.46 (4.0-11.0) K/uL RBC 5.44 (4.50-5.90) M/uL Hgb 15.8 (13.0-17.0) g/dL Hct 46.1 (38.0-50.0) % MCV 84.7 (80.0-98.0) fL MCH 29.0 (27.0-32.0) pg MCHC 34.3 (31.0-37.0) g/dL RDW Std Deviation 41.9 (28.0-62.0) fl RDW Coeff of Ramírez 14 (11.0-15.0) % Plt Count 283 (150-400) K/uL MPV 9.40 (7.40-12.00) fL Neut % (Auto) 53.6 (48.0-80.0) % Lymph % (Auto) 34.4 (16.0-40.0) % Bonner % (Auto) 8.2 (0.0-15.0) % Eos % (Auto) 3.1 (0.0-7.0) % Baso % (Auto) 0.7 (0.0-1.5) % Neut # (Auto) 2.9 (1.4-5.7) K/uL Lymph # (Auto) 1.9 (0.6-2.4) K/uL Bonner # (Auto) 0.5 (0.0-0.8) K/uL Eos # (Auto) 0.2 (0.0-0.7) K/uL Baso # (Auto) 0.0 (0.0-0.1) K/uL Nucleated RBC % 0.0 /100WBC Nucleated RBCs # 0 K/uL Sodium 139 (136-148) mmol/L Potassium 4.2 (3.5-5.1) mmol/L Chloride 103 (98-107) mmol/L Carbon Dioxide 24.6 (21.0-32.0) mmol/L BUN 13 (7.0-18.0) mg/dL Creatinine 1.2 (0.8-1.3) mg/dL Est Cr Clr Drug Dosing 99.90 mL/min Estimated GFR (MDRD) > 60.0 ml/min Glucose 97 (74-106) mg/dL Hemoglobin A1c 5.5 (4.5-6.2) % Calcium 9.4 (8.5-10.1) mg/dL Total Bilirubin 0.7 (0.2-1.0) mg/dL AST 29 (15-37) IU/L ALT 54 (14-63) IU/L Alkaline Phosphatase 66 (46-116) U/L Creatine Kinase (26-308) U/L Troponin I < 0.050 (0.000-0.056) ng/mL Total Protein 8.6 H (6.4-8.2) g/dL Albumin 4.3 (3.4-5.0) g/dL Globulin 4.3 H (2.6-4.0) g/dL Albumin/Globulin Ratio 1.0 (0.9-1.6) 08/05/18 08/05/18 Range/Units 10:29 16:08 WBC (4.0-11.0) K/uL RBC (4.50-5.90) M/uL Hgb (13.0-17.0) g/dL Hct (38.0-50.0) % MCV (80.0-98.0) fL MCH (27.0-32.0) pg MCHC (31.0-37.0) g/dL RDW Std Deviation (28.0-62.0) fl RDW Coeff of Ramírez (11.0-15.0) % Plt Count (150-400) K/uL MPV (7.40-12.00) fL Neut % (Auto) (48.0-80.0) % Lymph % (Auto) (16.0-40.0) % Bonner % (Auto) (0.0-15.0) % Eos % (Auto) (0.0-7.0) % Baso % (Auto) (0.0-1.5) % Neut # (Auto) (1.4-5.7) K/uL Lymph # (Auto) (0.6-2.4) K/uL Bonner # (Auto) (0.0-0.8) K/uL Eos # (Auto) (0.0-0.7) K/uL Baso # (Auto) (0.0-0.1) K/uL Nucleated RBC % /100WBC Nucleated RBCs # K/uL Sodium (136-148) mmol/L Potassium (3.5-5.1) mmol/L Chloride (98-107) mmol/L Carbon Dioxide (21.0-32.0) mmol/L BUN (7.0-18.0) mg/dL Creatinine (0.8-1.3) mg/dL Est Cr Clr Drug Dosing mL/min Estimated GFR (MDRD) ml/min Glucose (74-106) mg/dL Hemoglobin A1c (4.5-6.2) % Calcium (8.5-10.1) mg/dL Total Bilirubin (0.2-1.0) mg/dL AST (15-37) IU/L ALT (14-63) IU/L Alkaline Phosphatase (46-116) U/L Creatine Kinase 175 (26-308) U/L Troponin I < 0.050 (0.000-0.056) ng/mL Total Protein (6.4-8.2) g/dL Albumin (3.4-5.0) g/dL Globulin (2.6-4.0) g/dL Albumin/Globulin Ratio (0.9-1.6) Result Diagrams: 08/05/18 10:29 08/05/18 10:29 Orders Last 24hrs: Active Orders 24 hr Category Date Time Status Patient Status [ADT] Stat ADT 08/05/18 11:39 Active Antiembolic Devices [RC] PER UNIT ROUTINE Care 08/05/18 12:30 Active Cardiac Monitoring [RC] . DIRECTED Care 08/05/18 10:19 Active Communication Order [RC] ROUTINE Care 08/05/18 12:44 Active EKG Documentation Completion [RC] STAT Care 08/05/18 10:19 Active Intake and Output [RC] Q12H Care 08/05/18 12:30 Active Oxygen Therapy [RC] PRN Care 08/05/18 12:30 Active Oxygen Therapy, ED [RC] ASDIRECTED Care 08/05/18 10:19 Active Pulse Oximetry [RC] ASDIRECTED Care 08/05/18 10:19 Active Telemetry Monitoring [Cardiac Monitoring] [RC] Q8H Care 08/05/18 12:46 Active Up ad Inez [RC] ASDIRECTED Care 08/05/18 12:30 Active VTE/DVT Education [RC] PER UNIT ROUTINE Care 08/05/18 12:30 Active Vaccines to be Administered [RC] PER UNIT ROUTINE Care 08/05/18 18:30 Active Vital Signs [RC] Q4H Care 08/05/18 12:30 Active Heart Healthy Diet [DIET] Diet 08/05/18 Lunch Active Extremity, Non Vascular LTD [MR] Routine Exams 08/05/18 14:54 Stop Req LIPID PANEL [CHEM] AM Lab 08/06/18 05:11 Ordered TROPONIN I [CHEM] Q6H Lab 08/05/18 22:30 Ordered Acetaminophen [Tylenol] Med 08/05/18 12:30 Active 650 mg PO Q4H PRN Aspirin Med 08/06/18 09:00 Active 81 mg PO DAILY Ondansetron [Zofran ODT] Med 08/05/18 12:30 Active 4 mg PO Q4H PRN Sodium Chloride 0.9% [Saline Flush] Med 08/05/18 10:19 Active 10 ml FLUSH ASDIRECTED PRN Sodium Chloride 0.9% [Saline Flush] Med 08/05/18 10:19 Active 2.5 ml FLUSH ASDIRECTED PRN amLODIPine [Norvasc] Med 08/05/18 12:46 Active 10 mg PO DAILY diazePAM [Valium] Med 08/05/18 16:22 Active 5 mg IVPUSH Q4H PRN metroNIDAZOLE/Normal Saline [Flagyl 500 MG in NS 100 ML Med 08/05/18 14:43 Active ] 500 mg Premix Bag 1 bag IV QID oxyCODONE Med 08/05/18 16:44 Active 5 mg PO Q4H PRN Saline Lock Insert [OM.PC] Stat Oth 08/05/18 10:19 Ordered Sequential Compression Device [OM.PC] Per Unit Routine Oth 08/05/18 12:30 Ordered Resuscitation Status Routine Resus Stat 08/05/18 12:30 Ordered Medication Orders Acetaminophen (Tylenol) 650 mg PO Q4H PRN PRN Reason: Pain Amlodipine Besylate (Norvasc) 10 mg PO DAILY [facility] Last Admin: 08/05/18 13:16 Dose: 10 mg Aspirin (Aspirin) 81 mg PO DAILY [facility] Diazepam (Valium) 5 mg IVPUSH Q4H PRN PRN Reason: Muscle Spasm Metronidazole 500 mg/ Premix 100 mls @ 100 mls/hr IV QID [facility] Last Admin: 08/05/18 17:22 Dose: 100 mls/hr Infusion: 08/05/18 16:18 Dose: 100 mls/hr Admin: 08/05/18 15:18 Dose: 100 mls/hr Ondansetron HCl (Zofran Odt) 4 mg PO Q4H PRN PRN Reason: nausea, able to take PO Oxycodone HCl (Oxycodone) 5 mg PO Q4H PRN PRN Reason: Pain Sodium Chloride (Saline Flush) 10 ml FLUSH ASDIRECTED PRN PRN Reason: Keep Vein Open Last Admin: 08/05/18 10:31 Dose: 10 ml Sodium Chloride (Saline Flush) 2.5 ml FLUSH ASDIRECTED PRN PRN Reason: Keep Vein Open Last Admin: 08/05/18 10:31 Dose: 2.5 ml
[2018-08-05] MEDS: metroNIDAZOLE/Normal Saline 500 MG in Premix Bag 1 BAG IV SCH ×3 (15:18→23:43)
[2018-08-05] MEDS ORDERED: diazePAM 5 MG/ML MDV IVPUSH PRN (16:22)
[2018-08-05] MEDS ORDERED: oxyCODONE 5 MG Tab PO PRN (16:44)
[2018-08-06] MEDS: metroNIDAZOLE/Normal Saline 500 MG in Premix Bag 1 BAG IV SCH ×2 (05:29→11:50)
[2018-08-06] MEDS ORDERED: Aspirin 81 MG Tab.Chew PO SCH (09:00)
[2018-08-06] MEDS: amLODIPine 5 MG Tab PO SCH (09:27)
[2018-08-06] MEDS ORDERED: [UNRECOGNIZED DRUG - OTHER] IV ONE (10:48)
[2018-08-06] MEDS ORDERED: IMMUNE GLOBULIN GAMMA IV ONE (10:48)
[2018-08-06] MEDS ORDERED: IMMUNE GLOBULIN IV ONE (11:15)
[2018-08-06] MEDS ORDERED: MALTOSE IV ONE (11:15)
--- NOTE | 2018-08-06 11:45 | PCM.DCSUM1 ---
Discharge Summary - Hospital Course Brief History: This 33 year old male with pmh of HTN presented to the ED with complaints of atypical chest pain. He reports this pain and overall not feeling well started after he punctured the web space between the L thumb and secondary finger on July 20. He reports upper L sided chest pain and tightness, worsens with deep breathing and felt better with limited movement of L arm and chest. Ibuprofen did help make pain more tolerable and take the edge off. He reports the pain is located just below clavicle on L, radiates to the L axilla up to his jaw and L anterior neck, it is a tight squeezing pain. He denies any injury or repetitive activity recently. He reports a R sided chest pain before he punctured his hand last week, but that has not returned. He reports associated lightheadedness and dizziness, with mild headache. No blurred vision or double vision. Denies shortness of breath, diaphoresis or palpitations. He denies fevers or respiratory concerns. He denies abdominal pain or diarrhea or constipation. No urinary symptoms. No focal neurologic deficits. No posterior neck pain. he does report L sided neck pain, on sternocleidomastoid muscle. He reports chewing tobacco use, 1/2 tin daily, used to smoke but changed to chew. No real interest in quitting now. Rare alcohol use and no recreational drug use. He denies family history of cardiac disease. No personal history of CAD or DM. He had stress test a couple years ago in [place], reports it was normal but he was started on Bystolic for HTN. He stopped taking it because he made him very tired and fatigued. The puncture wound to L hand is completely healed. No erythema or drainage noted. No pain to webbing or to movement of hand. Injury was on July 18, he came to the ED and was given Tentus vaccine on July 20 and also received Keflex. He reports he felt good until he finished his Keflex prescription approximately 3-4 days ago and the pain continued to increase to the point he returns today. In the ED Labwork WNL. Troponin negative. EKG, SR with no acute ST changes or ischemic changes. BP on arrival noted to be 160/115s. He was treated with ASA 324 mg , Nitro x3. he reports with the nitro it helped calm the pain and brought his BP down. He felt improved. He was admitted for observation for atypical chest pain rule out ACS. PCP, Dr Mishra. I did speak with Dr Mishra in regards to admission and clinic visit on 07/24. He reports he was going to increase Amlodipine to 10 mg if BPs were consistently elevated beyond 140/90s. Patient reports that BP has been 140-150/90s since start Amlodipine at home. Diagnosis: Stroke: No - Discharge Data Discharge Date: 08/06/18 Discharge Disposition: Home, Self-Care 01 Condition: Good - Discharge Diagnosis/Problem(s) (1) Atypical chest pain SNOMED Code(s): 666234050 ICD Code: R07.89 - OTHER CHEST PAIN Status: Acute Current Visit: Yes (2) Hypertension SNOMED Code(s): 88014796 ICD Code: I10 - ESSENTIAL (PRIMARY) HYPERTENSION Status: Acute Current Visit: No (3) Puncture wound - injury SNOMED Code(s): 778197539 ICD Code: T14.8XXA - OTHER INJURY OF UNSPECIFIED BODY REGION, INITIAL ENCOUNTER Status: Acute Current Visit: No (4) Clostridial tetanus SNOMED Code(s): 44947554 ICD Code: A35 - OTHER TETANUS Status: Suspected Current Visit: Yes - Patient Instructions Diet: Usual Diet as Tolerated Activity: Rest and Relax Today Showering/Bathing: May Shower Notify Provider of: Fever, Increased Pain, Swelling and Redness, Drainage, Nausea and/or Vomiting - Discharge Plan *PRESCRIPTION DRUG MONITORING PROGRAM REVIEWED*: Not Applicable *COPY OF PRESCRIPTION DRUG MONITORING REPORT IN PATIENT MARGA: Not Applicable Prescriptions/Med Rec: amLODIPine Besylate [Norvasc] 10 mg PO DAILY #30 tablet metroNIDAZOLE [Flagyl] 500 mg PO Q6H #40 tab Home Medications: Home Meds Acetaminophen [Tylenol] 650 mg PO Q4H PRN tablet 08/06/18 [Rx] Aspirin 81 mg PO DAILY tab.chew 08/06/18 [Rx] amLODIPine Besylate [Norvasc] 10 mg PO DAILY #30 tablet 08/06/18 [Rx] metroNIDAZOLE [Flagyl] 500 mg PO Q6H #40 tab 08/06/18 [Rx] Oxygen Therapy Mode: Room Air Patient Handouts: Muscle Pain, Adult, Nonspecific Chest Pain, [id number], Amlodipine tablets, Metronidazole tablets or capsules Referrals: [facility] [Outside] Taj Mishra MD [Physician] - 08/09/18 9:45 am (follow up in 1 week) - Discharge Summary/Plan Comment DC Time >30 min.: No Discharge Summary/Plan Comment: Discharge Diagnoses: Local tetanus Atypical chest pain HTN-uncontrolled Wilber was admitted initially for atypical chest pain. This pain is suspected to be caused from local tetanus due to puncture wound to L have mid July. He was started on Flagyl 500 mg Q6hrs, which ultimately helped pain the most to L neck and L upper chest and axilla. No further arm muscle tightness. Wound is clean, actually completely healed. There have been no fevers or chills and no erythematous areas to his arm. No further imaging was obtained as deep infection unlikely. We were unable to give Tetanus immune globulin due to lack of availability. After speaking with Ron Dubon we were able to given IV IgG 10 gm today to help bind any further unbound toxin. He is feeling much better today. His Amlodipine was increased to 10 mg, BP 140-150/80-90s still. He is to monitor BP at home and follow with PCP in 1 week. I did speak with Dr Mishra today and notified him of new diagnoses. Will have him follow with Dr Mishra. At this time no stress test was ordered, I will leave this up to Dr Mishra since pain is likely secondary to muscular pain from local tetany. Troponins negative, ACS ruled out. He will be continued on Flagyl for 10 total days. He is to return to ED or clinic if concerns should arise. New prescription for Amlodipine 10 mg sent for 1 month supply. - General Info Date of Service: 08/06/18 Admission Dx/Problem (Free Text: Admission Diagnosis/Problem Admission Diagnosis/Problem Chest pain Subjective Update: feeling much better today. No further chest pain, reports after a couple doses of Flagyl he was back to feeling really good again. NO further extreme tenderness to L upper chest of neck. No further muscle tightness Functional Status: Reports: Pain Controlled, Tolerating Diet, Ambulating, Urinating - Review of Systems General: Reports: No Symptoms. Denies: Fever, Weakness, Fatigue, Malaise HEENT: Reports: No Symptoms. Denies: Headaches, Sore Throat, Visual Changes Pulmonary: Reports: No Symptoms. Denies: Shortness of Breath Cardiovascular: Reports: No Symptoms. Denies: Chest Pain, Palpitations Gastrointestinal: Reports: No Symptoms. Denies: Abdominal Pain, Nausea, Vomiting Genitourinary: Reports: No Symptoms. Denies: Dysuria, Frequency Musculoskeletal: Reports: No Symptoms. Denies: Neck Pain, Arm Pain, Hand Pain Skin: Reports: No Symptoms Neurological: Reports: No Symptoms Psychiatric: Reports: No Symptoms - Patient Data Vitals - Most Recent: Last Vital Signs Temp 97.8 F 08/06/18 11:39 Pulse 74 08/06/18 11:39 Resp 16 08/06/18 11:39 BP 149/87 H 08/06/18 11:39 Pulse Ox 99 08/06/18 11:39 Weight - Most Recent: 111.175 kg I&O - Last 24 hours: Intake & Output 08/05/18 08/06/18 08/06/18 22:59 06:59 14:59 Intake Total 650 2200 Output Total 650 3700 Balance 0 -1500 Lab Results - Last 24 hrs: Laboratory Results - last 24 hr 08/05/18 08/05/18 08/05/18 Range/Units 10:29 10:29 16:08 Hemoglobin A1c 5.5 (4.5-6.2) % Creatine Kinase 175 (26-308) U/L Troponin I < 0.050 (0.000-0.056) ng/mL Triglycerides (0-200) mg/dL Cholesterol (50-200) mg/dL LDL Cholesterol, Calc (60-180) mg/dL VLDL Cholesterol (5-55) mg/dL HDL Cholesterol (40-60) mg/dL Cholesterol/HDL Ratio (3.3-6.0) 08/05/18 08/06/18 Range/Units 22:40 05:10 Hemoglobin A1c (4.5-6.2) % Creatine Kinase (26-308) U/L Troponin I < 0.050 (0.000-0.056) ng/mL Triglycerides 133 (0-200) mg/dL Cholesterol 135 (50-200) mg/dL LDL Cholesterol, Calc 43 L (60-180) mg/dL VLDL Cholesterol 26 (5-55) mg/dL HDL Cholesterol 65 H (40-60) mg/dL Cholesterol/HDL Ratio 2.1 L (3.3-6.0) Med Orders - Current: Current Medications Acetaminophen (Tylenol) 650 mg PO Q4H PRN PRN Reason: Pain Amlodipine Besylate (Norvasc) 10 mg PO DAILY [facility] Last Admin: 08/06/18 09:27 Dose: 10 mg Aspirin (Aspirin) 81 mg PO DAILY [facility] Last Admin: 08/06/18 09:27 Dose: 81 mg Diazepam (Valium) 5 mg IVPUSH Q4H PRN PRN Reason: Muscle Spasm Metronidazole 500 mg/ Premix 100 mls @ 100 mls/hr IV QID [facility] Last Admin: 08/06/18 05:29 Dose: 100 mls/hr Immune Globulin (Octagam 5%) 200 mls @ 66.667 mls/hr IV ONETIME ONE Stop: 08/06/18 14:14 Ondansetron HCl (Zofran Odt) 4 mg PO Q4H PRN PRN Reason: nausea, able to take PO Oxycodone HCl (Oxycodone) 5 mg PO Q4H PRN PRN Reason: Pain Sodium Chloride (Saline Flush) 10 ml FLUSH ASDIRECTED PRN PRN Reason: Keep Vein Open Last Admin: 08/05/18 10:31 Dose: 10 ml Sodium Chloride (Saline Flush) 2.5 ml FLUSH ASDIRECTED PRN PRN Reason: Keep Vein Open Last Admin: 08/05/18 10:31 Dose: 2.5 ml Discontinued Medications Aspirin (Aspirin) 324 mg PO ONETIME ONE Stop: 08/05/18 10:20 Last Admin: 08/05/18 10:31 Dose: 324 mg Sodium Chloride (Normal Saline) 1,000 mls @ 999 mls/hr IV STAT ONE Stop: 08/05/18 11:19 Last Admin: 08/05/18 10:31 Dose: 999 mls/hr Ketorolac Tromethamine (Toradol) 30 mg IVPUSH ONETIME ONE Stop: 08/05/18 11:40 Last Admin: 08/05/18 12:01 Dose: 30 mg Nitroglycerin (Nitrostat) 0.4 mg SL Q5M PRN PRN Reason: Chest Pain Last Admin: 08/05/18 10:41 Dose: 0.4 mg Nitroglycerin (Nitro-Bid 2%) 0.5 gm TOP ONETIME ONE Stop: 08/05/18 10:50 Last Admin: 08/05/18 11:04 Dose: 0.5 gm Tetanus Immune Globulin (Hypertet S/D) 250 unit IM .ONCE ONE Stop: 08/05/18 18:30 - Exam General: Reports: Alert, Oriented, Cooperative, No Acute Distress Lungs: Reports: Clear to Auscultation, Normal Respiratory Effort Cardiovascular: Reports: Regular Rate, Regular Rhythm GI/Abdominal Exam: Normal Bowel Sounds, Soft, Non-Tender Extremities: Normal Inspection, Normal Range of Motion, Non-Tender, No Pedal Edema, Other (no further neck pain and L sternocleidomastoid muscle less stiff and more pliable today. No further pain to palpation of L chest or axilla ) Psy/Mental Status: Reports: Alert, Normal Affect, Normal Mood
== END 2018-08-06 14:50 | disposition home or self-care (01) ==
LOC: MW.ED 10:10 → MW.MS 11:51
PROVIDERS: ADMIT Internal Medicine; ATTEND Internal Medicine
DX: R07.89 Other chest pain (principal); I10 Essential (primary) hypertension; E66.9 Obesity, unspecified; Z87.891 Personal history of nicotine dependence; Z79.899 Other long term (current) drug therapy
CPT/HCPCS: 36415; 71045; 80053; 80061; 82550; 83036; 84484; 85025; 93005; 96361; 96374; 99285; A9270; J1568; J1885; J3490; J7040; 96365; 96366; 96367; 96375; 99283; G0378

== ENCOUNTER 2018-09-30 19:53 | Emergency (ER) | payer OTHER ==
--- NOTE | 2018-09-30 20:18 | EDM.PDOC ---
ED HPI GENERAL MEDICAL PROBLEM - General Chief Complaint: Lower Extremity Injury/Pain Stated Complaint: INJURY TO LEG Time Seen by Provider: 09/30/18 20:02 - History of Present Illness INITIAL COMMENTS - FREE TEXT/NARRATIVE: HISTORY AND PHYSICAL: History of present illness: Patient 33-year-old white male presents with a concern of left Achilles tendon injury that occurred in his playing basketball. He denies other trauma or concern Review of systems: As per history of present illness and below otherwise all systems reviewed and negative. Past medical history: As per history of present illness and as reviewed below otherwise noncontributory. Surgical history: As per history of present illness and as reviewed below otherwise noncontributory. Social history: No reported history of drug or alcohol abuse. Family history: As per history of present illness and as reviewed below otherwise noncontributory. Physical exam: HEENT: Atraumatic, normocephalic, pupils reactive, negative for conjunctival pallor or scleral icterus, mucous membranes moist, throat clear, neck supple, nontender, trachea midline. Lungs: Clear to auscultation, breath sounds equal bilaterally, chest nontender. Heart: S1S2, regular, negative for clicks, rubs, or JVD. Abdomen: Soft, nondistended, nontender. Negative for masses or hepatosplenomegaly. Negative for costovertebral tenderness. Pelvis: Stable nontender. Genitourinary: Deferred. Rectal: Deferred. Extremities: Patient has tenderness with a step-off of his left Achilles consistent with rupture neurovascular exams unremarkable Neuro: Awake, alert, oriented. Cranial nerves II through XII unremarkable. Cerebellum unremarkable. Motor and sensory unremarkable throughout. Exam nonfocal. Diagnostics: X-ray left ankle Therapeutics: Posterior mold with slight plantar flexion and crutches Impression: #1 acute Achilles tendon injury Definitive disposition and diagnosis as appropriate pending reevaluation and review of above. - Related Data Allergies Allergy/AdvReac Type Severity Reaction Status Date / Time No Known Allergies Allergy Verified 08/05/18 10:19 Home Meds: Home Meds Acetaminophen [Tylenol] 650 mg PO Q4H PRN tablet 08/06/18 [Rx] Aspirin 81 mg PO DAILY tab.chew 08/06/18 [Rx] amLODIPine Besylate [Norvasc] 10 mg PO DAILY #30 tablet 08/06/18 [Rx] metroNIDAZOLE [Flagyl] 500 mg PO Q6H #40 tab 08/06/18 [Rx] Past Medical History Cardiovascular History: Reports: Hypertension. Denies: Afib, Blood Clots/VTE/ DVT, CAD, AL Respiratory History: Reports: None. Denies: Asthma, COPD, PE Gastrointestinal History: Reports: None. Denies: GERD Genitourinary History: Reports: None. Denies: Chronic Renal Insuffiency Musculoskeletal History: Reports: None Neurological History: Reports: None. Denies: CVA, TIA Psychiatric History: Reports: Anxiety Endocrine/Metabolic History: Reports: Obesity/BMI 30+. Denies: Diabetes, Type II, Hypothyroidism - Infectious Disease History Infectious Disease History: Reports: Chicken Pox - Past Surgical History HEENT Surgical History: Reports: Tonsillectomy Cardiovascular Surgical History: Reports: None GI Surgical History: Reports: Appendectomy Musculoskeletal Surgical History: Reports: Knee Replacement, Other (See Below) Other Musculoskeletal Surgeries/Procedures:: right knee repair Social & Family History - Family History Family Medical History: Noncontributory - Caffeine Use Caffeine Use: Reports: Energy Drinks, Soda - Living Situation & Occupation Living situation: Reports: Occupation: Employed Review of Systems - Review of Systems Review Of Systems: ROS reveals no pertinent complaints other than HPI. ED EXAM, GENERAL - Physical Exam Exam: See Below (See dictation) Course - Orders/Labs/Meds Orders: Active Orders 24 hr Category Date Time Status Ankle Min 3V Lt [CR] Stat Exams 09/30/18 20:06 Ordered Departure - Departure Time of Disposition: 20:18 Disposition: Home, Self-Care 01 Condition: Good Clinical Impression: Achilles tendon injury - Discharge Information Referrals: PCP,Unknown [Primary Care Provider] - Additional Instructions: The following information is given to patients seen in the emergency department who are being discharged to home. This information is to outline your options for follow-up care. We provide all patients seen in our emergency department with a follow-up referral. The need for follow-up, as well as the timing and circumstances, are variable depending upon the specifics of your emergency department visit. If you don't have a primary care physician on staff, we will provide you with a referral. We always advise you to contact your personal physician following an emergency department visit to inform them of the circumstance of the visit and for follow-up with them and/or the need for any referrals to a consulting specialist. The emergency department will also refer you to a specialist when appropriate. This referral assures that you have the opportunity for followup care with a specialist. All of these measure are taken in an effort to provide you with optimal care, which includes your followup. Under all circumstances we always encourage you to contact your private physician who remains a resource for coordinating your care. When calling for followup care, please make the office aware that this follow-up is from your recent emergency room visit. If for any reason you are refused follow-up, please contact the [facility] emergency department at and asked to speak to the emergency department charge nurse. [facility] Professional Building [address] [place] [address], [address] [place] [address] Follow-up orthopedic clinic above 9 AM tomorrow hydrocodone as prescribed posterior mold and crutches as directed and return as needed as discussed - My Orders Last 24 Hours: My Active Orders 09/30/18 20:06 Ankle Min 3V Lt [CR] Stat - Assessment/Plan Last 24 Hours: My Active Orders 09/30/18 20:06 Ankle Min 3V Lt [CR] Stat
--- NOTE | 2018-09-30 20:35 | CR ---
Indication: Sport`s injury. Technique: Three views of the right ankle were obtained. Comparison: None Findings: The ankle mortise is intact. The talar dome is intact. No acute fracture or subluxation is identified. Impression: No acute fracture. Dictated by Priya Roach MD @ Sep 30 2018 8:32PM Signed by Dr. Priya Roach @ Sep 30 2018 8:33PM
== END 2018-09-30 20:45 | disposition home or self-care (01) ==
LOC: MW.ED 19:53
DX: S86.002A Unspecified injury of left Achilles tendon, initial encounter (principal); Y93.67 Activity, basketball; I10 Essential (primary) hypertension; F41.9 Anxiety disorder, unspecified; X58.XXXA Exposure to other specified factors, initial encounter; Z79.82 Long term (current) use of aspirin; Z79.899 Other long term (current) drug therapy
CPT/HCPCS: 29515; 73610-26-RT; 73610-RT; 99282; 99283-25

== ENCOUNTER 2018-10-02 08:25 | Day surgery (SDC) | payer OTHER ==
[~2018-10-02 08:25] MED LIST: Lactated Ringers 1,000 ML IV SCH; ceFAZolin 2 GM in Premix Bag 1 BAG IV SCH
--- NOTE | 2018-10-02 09:37 | PCM.PREANE ---
Preanesthetic Assessment - Anesthesia/Transfusion/Family Hx Anesthesia History: Prior Anesthesia Without Reaction Family History of Anesthesia Reaction: No Transfusion History: No Prior Transfusion(s) Intubation History: Unknown - Review of Systems General: No Symptoms Pulmonary: No Symptoms Cardiovascular: No Symptoms Gastrointestinal: No Symptoms Neurological: No Symptoms Other: Reports: None - Physical Assessment O2 Sat by Pulse Oximetry: 95 Respiratory Rate: 16 Vital Signs: Last Vital Signs Temp 36.1 C 10/02/18 09:10 Pulse 83 10/02/18 09:10 Resp 16 10/02/18 09:10 BP 142/82 H 10/02/18 09:10 Pulse Ox 95 10/02/18 09:10 Height: 1.88 m Weight: 108.862 kg ASA Class: 2 Mental Status: Alert & Oriented x3 Airway Class: Mallampati = 2 Dentition: Reports: Normal Dentition Thyro-Mental Finger Breadths: 3 Mouth Opening Finger Breadths: 3 ROM/Head Extension: Full Lungs: Clear to Auscultation, Normal Respiratory Effort Cardiovascular: Regular Rate, Regular Rhythm - Allergies Allergies/Adverse Reactions: Allergies Allergy/AdvReac Type Severity Reaction Status Date / Time No Known Allergies Allergy Verified 10/01/18 15:04 - Blood Blood Available: No - Anesthesia Plan Pre-Op Medication Ordered: None - Acknowledgements Anesthesia Type Planned: General Anesthesia Pt an Appropriate Candidate for the Planned Anesthesia: Yes Alternatives and Risks of Anesthesia Discussed w Pt/Guardian: Yes Pt/Guardian Understands and Agrees with Anesthesia Plan: Yes PreAnesthesia Questionnaire HEENT History: Reports: Other (See Below) Other HEENT History: wears glasses Cardiovascular History: Reports: Hypertension Respiratory History: Reports: None. Denies: Asthma, COPD, PE Gastrointestinal History: Reports: None, Other (See Below) (h/o gastric ulcer) Genitourinary History: Reports: None. Denies: Chronic Renal Insuffiency Musculoskeletal History: Reports: Gout Neurological History: Reports: Concussion Psychiatric History: Reports: Anxiety Endocrine/Metabolic History: Reports: Obesity/BMI 30+ - Infectious Disease History Infectious Disease History: Reports: Chicken Pox - Past Surgical History HEENT Surgical History: Reports: Oral Surgery, Tonsillectomy Other HEENT Surgeries/Procedures: wisdom teeth removed GI Surgical History: Reports: Appendectomy Musculoskeletal Surgical History: Reports: Arthroscopic Knee (right side) - SUBSTANCE USE Smoking Status *Q: Former Smoker Tobacco Use Within Last Twelve Months: No, Smokeless Tobacco Recreational Drug Use History: No - HOME MEDS Home Medications: Home Meds Acetaminophen/HYDROcodone [Cornell 325-5 MG] 1 tab PO Q4H PRN 10/01/18 [History] Aspirin 81 mg PO QAM 10/01/18 [History] amLODIPine Besylate [Norvasc] 10 mg PO QAM 10/01/18 [History] hydroCHLOROthiazide [Hydrochlorothiazide] 25 mg PO QAM 10/01/18 [History] - CURRENT (IN HOUSE) MEDS Current Meds: Current Medications Cefazolin Sodium/Dextrose 2 gm (/ Premix) 50 mls @ 100 mls/hr IV ONCALL BRAYAN Lactated Ringer's (Ringers, Lactated) 1,000 mls @ 100 mls/hr IV ASDIRECTED [facility] Last Admin: 10/02/18 09:28 Dose: 100 mls/hr
[2018-10-02] MEDS ORDERED: Bupivacaine 0.25% 10 ML SDV ONE (10:21)
[2018-10-02] MEDS ORDERED: Midazolam 1 MG/ML 2 ML SDV ONE (10:25)
[2018-10-02] MEDS ORDERED: fentaNYL 100 MCG/2 ML SDV ONE ×3 (10:26→12:00)
[2018-10-02] MEDS ORDERED: Lidocaine 2% 5 ML SDV ONE (10:27)
[2018-10-02] MEDS ORDERED: Propofol 200 MG/20 ML SDV ONE (10:29)
[2018-10-02] MEDS ORDERED: Rocuronium 100 MG/10 ML Syringe ONE (10:29)
[2018-10-02] MEDS ORDERED: ceFAZolin/Dextrose,Iso-Osmotic 2 GM/50 ML Duplex Bag IV ONE (11:25)
[2018-10-02] MEDS ORDERED: Dexamethasone 4 MG/ML 5 ML MDV ONE (11:26)
[2018-10-02] MEDS ORDERED: Ondansetron 4 MG/2 ML SDV ONE ×2 (11:27)
[2018-10-02] MEDS ORDERED: Ketorolac 30 MG/ML SDV ONE (11:32)
[2018-10-02] MEDS ORDERED: Sugammadex Sodium 200 MG/2 ML VIAL ONE (11:49)
[2018-10-02] MEDS ORDERED: Neostigmine Methylsulfate 1 MG/ML 5 ML Syringe ONE (12:07)
--- NOTE | 2018-10-02 12:27 | PCM.OPNOTE ---
- General Post-Op/Procedure Note Date of Surgery/Procedure: 10/02/18 Operative Procedure(s): R Achilles tendon repair Post-Op Diagnosis: R Achilles tendon rupture Anesthesia Technique: General ET Tube Primary Surgeon: Sandie Garrido Mail Machine Operator: Giana Jean in mLs: 10 Condition: Good Free Text/Narrative:: #[id number] tt=43 min
[2018-10-02] MEDS ORDERED: traMADol 50 MG Tab PO PRN (12:35)
[2018-10-02] MEDS ORDERED: Acetaminophen/HYDROcodone 325-10 MG Tab PO PRN (12:35)
[2018-10-02] MEDS ORDERED: Ketorolac 30 MG/ML SDV IVPUSH PRN (12:35)
[2018-10-02] MEDS ORDERED: Acetaminophen 1,000 MG in Premix Bag 1 BAG IV PRN (12:39)
[2018-10-02] MEDS ORDERED: Meperidine PF 25 MG/ML Syringe IVPUSH ONE (12:43)
[2018-10-02] MEDS ORDERED: fentaNYL 100 MCG/2 ML SDV IVPUSH PRN (12:43)
[2018-10-02] MEDS ORDERED: HYDROmorphone 2 MG/ML SDV IVPUSH PRN (12:43)
[2018-10-02] MEDS ORDERED: Meperidine PF 25 MG/ML Syringe ONE (12:48)
[2018-10-02] MEDS ORDERED: HYDROmorphone 2 MG/ML Syringe ONE (12:55)
--- NOTE | 2018-10-02 13:12 | PCM.POSTAN ---
POST ANESTHESIA ASSESSMENT - MENTAL STATUS Mental Status: Alert, Oriented - RESPIRATORY Respiratory Status: Respiratory Rate WNL, Airway Patent, O2 Saturation Stable - CARDIOVASCULAR CV Status: Pulse Rate WNL, Blood Pressure Stable - GASTROINTESTINAL GI Status: No Symptoms - PAIN Pain Score: 5 - POST OP HYDRATION Hydration Status: Adequate & Stable - OBSERVATIONS Free Text/Narrative:: no anesthesia problems
--- NOTE | 2018-10-02 18:47 | OR ---
SURGEON: Sandie Garrido MD DATE OF PROCEDURE: 10/02/2018 PREOPERATIVE DIAGNOSIS: Right Achilles tendon rupture. POSTOPERATIVE DIAGNOSIS: Right Achilles tendon rupture. PROCEDURE: Open repair of right Achilles tendon. HABITAT CONSERVATION PLANNER: Giana Jean RN. ANESTHESIA: General. ESTIMATED BLOOD LOSS: 10 mL. TOURNIQUET TIME: 43 minutes. COMPLICATIONS: None. DEEP VENOUS THROMBOSIS PROPHYLAXIS: PAS boot to the nonoperative leg. IMPLANTS USED: None. BRIEF HISTORY: Wilber is a 33-year-old male who injured his right ankle while playing basketball. An MRI did confirm a complete tear of the Achilles tendon. At that time, I discussed both surgical and conservative treatment options. I elected to proceed with surgical treatment. The risks and goals of procedure were discussed with the patient and were documented preoperatively. He agreed to proceed. DESCRIPTION OF PROCEDURE: The patient was properly identified and brought to the operating room. General anesthesia was administered on the operating room cart. A well-padded tourniquet was then applied to the right lower extremity. Following this, the patient was flipped into a prone position. Chest rolls were used to allow the intraabdominal contents to hang free. Care was taken to pad all bony prominences. His shoulders were secured. The right lower extremity was then prepped in standard fashion using ChloraPrep solution. It was then sterilely draped. A time-out was performed to ensure correct site and procedure. Preoperative antibiotics were given. The surgical site had been marked preoperatively. An Esmarch was used to exsanguinate the right lower extremity and the tourniquet was inflated to 250 mmHg. The site of the rupture was palpated. An incision was made posteriorly. Sharp dissection was used down to the level of the paratenon. The paratenon was then identified and was incised. The tendon rupture was immediately evident. The tendon was quite ragged. The proximal tendon was at the level of the musculotendinous junction. His soleus muscle appeared to be quite low-lying. The tendon ends were easily reapproximated with plantar flexion of the foot. The plantaris tendon remained intact. The wound was then copiously irrigated to remove any residual hematoma. #2 FiberWire was then passed in modified Krackow fashion through the proximal and distal limbs of the tendon. Both medial and lateral limbs were placed. In the proximal limb, I did pass the suture through the muscle layer anteriorly as well. This was incorporated into the repair. The tension on the contralateral side was then examined. The foot was held in slight plantar flexion as the suture limbs were reapproximated together. This provided good provisional fixation of the Achilles. 0 Vicryl was then used at the site of the repair in a circumferential fashion for additional reinforcement. At the completion of the repair, I was able to dorsiflex the ankle to 5 degrees without significant tension on the repair. The wound was again copiously irrigated with saline solution. The paratenon was closed over the tendon using 3-0 Vicryl. Subcutaneous tissues were closed using 2-0 Vicryl. The tourniquet was deflated prior to final wound closure and no excess bleeding was noted. Skin was closed with nelson. 0.5% Marcaine was injected around the incision site. Xeroform gauze was placed over the wound and a bulky dressing was applied. He was placed in a well-padded posterior splint with the foot held in plantar flexion. He was awakened from his anesthetic and transferred back to the operating room cart. He was brought to recovery room in stable condition. All needle and sponge counts were correct. ARON / JOSELITO /[id number]
== END 2018-10-02 15:45 | disposition home or self-care (01) ==
LOC: MW.SDS 08:25
PROVIDERS: ATTEND Orthopaedic Surgery
DX: S86.011A Strain of right Achilles tendon, initial encounter (principal); I10 Essential (primary) hypertension; F17.290 Nicotine dependence, other tobacco product, uncomplicated; L98.9 Disorder of the skin and subcutaneous tissue, unspecified; X58.XXXA Exposure to other specified factors, initial encounter; Y93.67 Activity, basketball; Z79.82 Long term (current) use of aspirin; Z79.899 Other long term (current) drug therapy
CPT/HCPCS: 27650; A9270; J0131; J0690; J1100; J1170; J1885; J2001; J2175; J2250; J2405; J2704; J3010; J3490; J7120

== ENCOUNTER 2020-01-03 10:36 | Emergency (ER) | payer OTHER, BC ==
[2020-01-03] MEDS ORDERED: Sodium Chloride 0.9% 2.5 ML Syringe FLUSH PRN ×2 (10:48)
[2020-01-03] MEDS ORDERED: Sodium Chloride 0.9% 1,000 ML IV ONE (10:48)
[2020-01-03] MEDS ORDERED: Sodium Chloride 0.9% 10 ML Syringe FLUSH PRN (10:48)
--- NOTE | 2020-01-03 10:48 | EDM.PDOC ---
ED HPI GENERAL MEDICAL PROBLEM - General Chief Complaint: Chest Pain Stated Complaint: CHEST PAIN Time Seen by Provider: 01/03/20 10:43 Source of Information: Reports: Patient History Limitations: Reports: No Limitations - History of Present Illness INITIAL COMMENTS - FREE TEXT/NARRATIVE: 34-year-old male with history of HTN presents with left-sided chest discomfort. He describes tightness sensation upon waking up yesterday, localized to his left chest and radiates to his left shoulder, left neck, left arm. Currently rated at 2/10. Described as tightness sensation. Associated with generalized malaise. He does describe a tearing sensation in his left shoulder. Denies shortness of breath, nausea, myalgia, diaphoresis, palpitation. He took his blood pressure medication this morning. He takes an 81 mg ASA daily. He took it today. ROS: A 10-point review of systems, other than pertinent positives and negatives as stated per HPI, is otherwise negative Past medical history: No additional pertinent history Past Surgical history: No additional pertinent history Social history: No additional pertinent history Family history: No additional pertinent history PHYSICAL EXAM General: AOx4, GCS = 15, No distress HEENT: dry mucous membrane Neck: supple, no meningismus, no Kernig or Brudzinski Cardiac: S1S2 RRR Respiratory: CTAB, no crackles or rales, no wheezing Abdomen: Soft, nontender, no rebound or guarding, nondistended, no pulsatile mass. Back: nontender Musculoskeletal: NVI distally, no deformity Neuro: No focal deficits, CN 2 - 12 WNL. left arm Pain Score (Numeric/FACES): 1 - Related Data Allergies Allergy/AdvReac Type Severity Reaction Status Date / Time No Known Allergies Allergy Verified 01/03/20 10:56 Home Meds: Home Meds Aspirin 81 mg PO QAM 10/01/18 [History] amLODIPine Besylate [Norvasc] 10 mg PO QAM 10/01/18 [History] hydroCHLOROthiazide [Hydrochlorothiazide] 25 mg PO QAM 10/01/18 [History] Past Medical History HEENT History: Reports: Other (See Below) Other HEENT History: wears glasses Cardiovascular History: Reports: Hypertension Respiratory History: Reports: None Gastrointestinal History: Reports: None, Other (See Below) Genitourinary History: Reports: None Musculoskeletal History: Reports: Gout Neurological History: Reports: Concussion Psychiatric History: Reports: Anxiety Endocrine/Metabolic History: Reports: Obesity/BMI 30+ - Infectious Disease History Infectious Disease History: Reports: Chicken Pox - Past Surgical History HEENT Surgical History: Reports: Oral Surgery, Tonsillectomy Other HEENT Surgeries/Procedures: wisdom teeth removed GI Surgical History: Reports: Appendectomy Musculoskeletal Surgical History: Reports: Arthroscopic Knee Social & Family History - Family History Family Medical History: Noncontributory - Caffeine Use Caffeine Use: Reports: Energy Drinks, Soda - Living Situation & Occupation Living situation: Reports: Occupation: Employed ED ROS GENERAL - Review of Systems Review Of Systems: Comprehensive ROS is negative, except as noted in HPI. ED EXAM, GENERAL - Physical Exam Exam: See Below (see dictation) EKG INTERPRETATION EKG Interpretation Comments: 85 Bpm, NSR, normal QRS interval, T wave inversion on III. no STEMI. EKG and rhythm strip interpreted by me at 1040 Course - Vital Signs Last Recorded V/S: Last Vital Signs Temp 97.2 F 01/03/20 10:45 Pulse 75 01/03/20 14:10 Resp 18 01/03/20 14:10 BP 155/81 H 01/03/20 14:10 Pulse Ox 99 01/03/20 14:10 - Orders/Labs/Meds Orders: Active Orders 24 hr Category Date Time Status Cardiac Monitoring [RC] . DIRECTED Care 01/03/20 10:48 Active EKG Documentation Completion [RC] STAT Care 01/03/20 10:49 Active Pulse Oximetry [RC] ASDIRECTED Care 01/03/20 10:48 Active Nitroglycerin [Nitrostat] Med 01/03/20 10:50 Active 0.4 mg SL Q5M PRN Sodium Chloride 0.9% [Saline Flush] Med 01/03/20 10:48 Active 10 ml FLUSH ASDIRECTED PRN Sodium Chloride 0.9% [Saline Flush] Med 01/03/20 10:48 Active 2.5 ml FLUSH ASDIRECTED PRN Sodium Chloride 0.9% [Saline Flush] Med 01/03/20 10:48 Active 2.5 ml FLUSH ASDIRECTED PRN Saline Lock Insert [OM.PC] Stat Oth 01/03/20 10:48 Ordered Medication Orders Nitroglycerin (Nitrostat) 0.4 mg SL Q5M PRN PRN Reason: Chest Pain Last Admin: 01/03/20 11:00 Dose: 0.4 mg Documented by: CURLY Sodium Chloride (Saline Flush) 10 ml FLUSH ASDIRECTED PRN PRN Reason: Keep Vein Open Last Admin: 01/03/20 11:01 Dose: 10 ml Documented by: GROTALI Sodium Chloride (Saline Flush) 2.5 ml FLUSH ASDIRECTED PRN PRN Reason: Keep Vein Open Last Admin: 01/03/20 11:01 Dose: 2.5 ml Documented by: CURLY Sodium Chloride (Saline Flush) 2.5 ml FLUSH ASDIRECTED PRN PRN Reason: Keep Vein Open Last Admin: 01/03/20 11:01 Dose: 2.5 ml Documented by: CURLY Labs: Laboratory Tests 01/03/20 01/03/20 01/03/20 Range/Units 10:50 10:50 10:50 WBC 4.20 (4.0-11.0) K/uL RBC 5.46 (4.50-5.90) M/uL Hgb 15.4 (13.0-17.0) g/dL Hct 45.0 (38.0-50.0) % MCV 82.4 (80.0-98.0) fL MCH 28.2 (27.0-32.0) pg MCHC 34.2 (31.0-37.0) g/dL RDW Std Deviation 39.8 (28.0-62.0) fl RDW Coeff of Ramírez 13 (11.0-15.0) % Plt Count 266 (150-400) K/uL MPV 9.40 (7.40-12.00) fL Neut % (Auto) 39.7 L (48.0-80.0) % Lymph % (Auto) 37.9 (16.0-40.0) % [place] % (Auto) 17.4 H (0.0-15.0) % Eos % (Auto) 4.0 (0.0-7.0) % Baso % (Auto) 1.0 (0.0-1.5) % Neut # (Auto) 1.7 (1.4-5.7) K/uL Lymph # (Auto) 1.6 (0.6-2.4) K/uL [place] # (Auto) 0.7 (0.0-0.8) K/uL Eos # (Auto) 0.2 (0.0-0.7) K/uL Baso # (Auto) 0.0 (0.0-0.1) K/uL Nucleated RBC % 0.0 /100WBC Nucleated RBCs # 0 K/uL INR 0.98 Sodium 132 L (136-148) mmol/L Potassium 3.8 (3.5-5.1) mmol/L Chloride 95 L (98-107) mmol/L Carbon Dioxide 27.0 (21.0-32.0) mmol/L BUN 6 L (7.0-18.0) mg/dL Creatinine 1.2 (0.8-1.3) mg/dL Est Cr Clr Drug Dosing 98.94 mL/min Estimated GFR (MDRD) > 60.0 ml/min Glucose 104 (74-106) mg/dL Calcium 8.8 (8.5-10.1) mg/dL Total Bilirubin 0.8 (0.2-1.0) mg/dL AST 33 (15-37) IU/L ALT 63 (14-63) IU/L Alkaline Phosphatase 73 (46-116) U/L Troponin I < 0.050 (0.000-0.056) ng/mL Total Protein 8.5 H (6.4-8.2) g/dL Albumin 4.4 (3.4-5.0) g/dL Globulin 4.1 H (2.6-4.0) g/dL Albumin/Globulin Ratio 1.1 (0.9-1.6) 01/03/20 Range/Units 13:31 WBC (4.0-11.0) K/uL RBC (4.50-5.90) M/uL Hgb (13.0-17.0) g/dL Hct (38.0-50.0) % MCV (80.0-98.0) fL MCH (27.0-32.0) pg MCHC (31.0-37.0) g/dL RDW Std Deviation (28.0-62.0) fl RDW Coeff of Ramírez (11.0-15.0) % Plt Count (150-400) K/uL MPV (7.40-12.00) fL Neut % (Auto) (48.0-80.0) % Lymph % (Auto) (16.0-40.0) % [place] % (Auto) (0.0-15.0) % Eos % (Auto) (0.0-7.0) % Baso % (Auto) (0.0-1.5) % Neut # (Auto) (1.4-5.7) K/uL Lymph # (Auto) (0.6-2.4) K/uL [place] # (Auto) (0.0-0.8) K/uL Eos # (Auto) (0.0-0.7) K/uL Baso # (Auto) (0.0-0.1) K/uL Nucleated RBC % /100WBC Nucleated RBCs # K/uL INR Sodium (136-148) mmol/L Potassium (3.5-5.1) mmol/L Chloride (98-107) mmol/L Carbon Dioxide (21.0-32.0) mmol/L BUN (7.0-18.0) mg/dL Creatinine (0.8-1.3) mg/dL Est Cr Clr Drug Dosing mL/min Estimated GFR (MDRD) ml/min Glucose (74-106) mg/dL Calcium (8.5-10.1) mg/dL Total Bilirubin (0.2-1.0) mg/dL AST (15-37) IU/L ALT (14-63) IU/L Alkaline Phosphatase (46-116) U/L Troponin I < 0.050 (0.000-0.056) ng/mL Total Protein (6.4-8.2) g/dL Albumin (3.4-5.0) g/dL Globulin (2.6-4.0) g/dL Albumin/Globulin Ratio (0.9-1.6) Meds: Medications Generic Name Dose Route Start Last Admin Trade Name Freq PRN Reason Stop Dose Admin Nitroglycerin 0.4 mg 01/03/20 10:50 01/03/20 11:00 Nitrostat SL 0.4 mg Q5M PRN Administration Chest Pain Sodium Chloride 10 ml 01/03/20 10:48 01/03/20 11:01 Saline Flush FLUSH 10 ml ASDIRECTED PRN Administration Keep Vein Open Sodium Chloride 2.5 ml 01/03/20 10:48 01/03/20 11:01 Saline Flush FLUSH 2.5 ml ASDIRECTED PRN Administration Keep Vein Open Sodium Chloride 2.5 ml 01/03/20 10:48 01/03/20 11:01 Saline Flush FLUSH 2.5 ml ASDIRECTED PRN Administration Keep Vein Open Discontinued Medications Generic Name Dose Route Start Last Admin Trade Name Everton PRN Reason Stop Dose Admin Sodium Chloride 1,000 mls @ 999 mls/hr 01/03/20 10:48 01/03/20 10:59 Normal Saline IV 01/03/20 11:48 999 mls/hr BOLUS ONE Administration Iopamidol 100 ml 01/03/20 11:58 01/03/20 11:59 Isovue-370 (76%) IVPUSH 01/03/20 11:59 100 ml ONETIME ONE Administration - Re-Assessments/Exams Free Text/Narrative Re-Assessment/Exam: 01/03/20 11:37 Chest pain down to 0/10 after 1 SL NTG. BP improving. 01/03/20 12:53 I offered the patient admission for his chest pain. The patient was informed of the need of admission so we can perform further testing to help further delineate and manage their current condition. Patient is alert/oriented x 4 with great decision making capacity. The patient has declined to be admitted to the hospital and elects to be discharged despite my recommendation. The patient would rather come back if their symptoms return/worsen. The patient was warned of the risks of not staying in the hospital, including worsening pain and . Patient still elects to go home. I will repeat a second troponin for trending. 01/03/20 14:21 Patient second troponin is unchanged from the first set. Performed a repeat exam and did not appreciate new abnormal findings. Patient exhibits normal vital signs and has a normal gait on road test. I advised the patient to return to the ER for reevaluation if symptoms worsened, including fever, worsening pain, or any other worrisome symptoms. I instructed the patient to follow up with their PCP within 2-3 days. MEDICAL DECISION MAKING: I reviewed the patients past medical records, lab and radiographic findings. I discussed the case with the patient. My differential diagnosis included:ACS, pneumonia, PE, pneumothorax, chest wall pain, pulmonary edema/CHF, aortic dissection, pericarditis, intra-abdominal process. MDM: Patient with chest pain is nitro responsive, chest pain is resolved to 0 after 1 sublingual nitroglycerin. His hypertension improved significantly also. His heart score = 4, I especially decision-making with the patient in regards to his heart score = 4, he is declining to be admitted to the hospital. He is aware of the risk and benefits of admission, he is electing to follow-up with cardiology next week. Given the EKG and clinical history, I do not suspect pericarditis. There is no evidence of pneumothorax or infiltrate on CXR. Aortic dissection was considered, CTA chest did not reveal dissection. The patients history, chest X- ray, and exam do not suggest pulmonary edema/congestive heart failure. Pulmonary embolism was considered but felt unlikely secondary to CTA chest. Intra- abdominal pathology felt unlikely given benign/non tender abdominal exam. Acute coronary syndrome was considered but there are negative serial nontrending biomarkers, no acute ischemic EKG changes. I have discussed this with the patient and reviewed options for inpatient and outpatient management. The patient verbalizes an excellent understanding of the above including presence of small risk of short-term major adverse cardiac event even in the setting of HEART score of 4, he declined to be admitted and wishes to pursue further workup on as an outpatient. I gave him strict return precautions for worsening recurring chest pain or hypertension. Departure - Departure Time of Disposition: 14:20 Disposition: Home, Self-Care 01 Condition: Good Clinical Impression: Atypical chest pain, Hypertension - Discharge Information *PRESCRIPTION DRUG MONITORING PROGRAM REVIEWED*: Not Applicable *COPY OF PRESCRIPTION DRUG MONITORING REPORT IN PATIENT MARGA: Not Applicable Instructions: Nonspecific Chest Pain, Adult, Preventing Hypertension Referrals: Hood Grant MD [Physician] - 3 Days Forms: ED Department Discharge Additional Instructions: The need for follow-up, as well as the timing and circumstances, are variable depending upon the specifics of your emergency department visit. If you don't have a primary care physician on staff, we will provide you with a referral. We always advise you to contact your personal physician following an emergency department visit to inform them of the circumstance of the visit and for follow-up with them and/or the need for any referrals to a consulting specialist. The emergency department will also refer you to a specialist when appropriate. This referral assures that you have the opportunity for follow-up care with a specialist. All of these measure are taken in an effort to provide you with optimal care, which includes your follow-up. Under all circumstances we always encourage you to contact your private physician who remains a resource for coordinating your care. When calling for follow-up care, please make the office aware that this follow-up is from your recent emergency room visit. If for any reason you are refused follow-up, please contact the [facility] Emergency Department at and asked to speak to the emergency department charge nurse. [place] [address] Sepsis Event Note (ED) - Focused Exam Vital Signs: Vital Signs Temp Pulse Resp BP BP Pulse Ox 01/03/20 14:10 75 18 155/81 H 99 01/03/20 13:30 74 17 148/79 H 97 01/03/20 11:05 97 17 145/96 H 97 01/03/20 11:02 87 18 175/112 H 98 01/03/20 11:00 172/115 H 01/03/20 10:45 97.2 F 87 17 169/106 H 98 - My Orders Last 24 Hours: My Active Orders 01/03/20 10:48 Cardiac Monitoring [RC] . DIRECTED Pulse Oximetry [RC] ASDIRECTED Sodium Chloride 0.9% [Saline Flush] 10 ml FLUSH ASDIRECTED PRN Sodium Chloride 0.9% [Saline Flush] 2.5 ml FLUSH ASDIRECTED PRN Sodium Chloride 0.9% [Saline Flush] 2.5 ml FLUSH ASDIRECTED PRN Saline Lock Insert [OM.PC] Stat 01/03/20 10:49 EKG Documentation Completion [RC] STAT 01/03/20 10:50 Nitroglycerin [Nitrostat] 0.4 mg SL Q5M PRN - Assessment/Plan Last 24 Hours: My Active Orders 01/03/20 10:48 Cardiac Monitoring [RC] . DIRECTED Pulse Oximetry [RC] ASDIRECTED Sodium Chloride 0.9% [Saline Flush] 10 ml FLUSH ASDIRECTED PRN Sodium Chloride 0.9% [Saline Flush] 2.5 ml FLUSH ASDIRECTED PRN Sodium Chloride 0.9% [Saline Flush] 2.5 ml FLUSH ASDIRECTED PRN Saline Lock Insert [OM.PC] Stat 01/03/20 10:49 EKG Documentation Completion [RC] STAT 01/03/20 10:50 Nitroglycerin [Nitrostat] 0.4 mg SL Q5M PRN
[2020-01-03] MEDS ORDERED: Nitroglycerin 0.4 MG Tab.SL SL PRN (10:50)
[2020-01-03 11:26] LABS: BLOOD UREA NITROGEN,BUN 6 mg/dL (7.0-18.0); CHLORIDE,CL 95 mmol/L (98-107); GLUCOSE RANDOM 104 mg/dL (74-106); POTASSIUM,K 3.8 mmol/L (3.5-5.1); SODIUM,NA 132 mmol/L (136-148)
[2020-01-03] MEDS ORDERED: Iopamidol 755 Mg/ML 100 ML Bottle IVPUSH ONE (11:58)
--- NOTE | 2020-01-03 12:18 | CT ---
Addendum: No evidence for aortic dissection. Please note that all CT scans at this facility use dose modulation, iterative reconstruction, and/or weight-based dosing when appropriate to reduce radiation dose to as low as reasonably achievable. Dictated by Yue Hawkins MD @ Jan 03 2020 2:22PM Signed by Dr. Yue Hawkins @ Jan 03 2020 2:23PM
== END 2020-01-03 14:30 | disposition home or self-care (01) ==
LOC: MW.ED 10:36
DX: R07.89 Other chest pain (principal); I10 Essential (primary) hypertension; M10.9 Gout, unspecified; E66.9 Obesity, unspecified; Z68.31 Body mass index [BMI] 31.0-31.9, adult; Z79.82 Long term (current) use of aspirin; Z79.899 Other long term (current) drug therapy
CPT/HCPCS: 36415; 71275; 80053; 84484; 85025; 85610; 93005; 99285; A9270; J7030; Q9967; 99283

== ENCOUNTER 2020-01-04 12:00 | Observation (INO) | payer OTHER, BC ==
[2020-01-04] MEDS ORDERED: Sodium Chloride 0.9% 10 ML Syringe FLUSH PRN (12:11)
[2020-01-04] MEDS ORDERED: Sodium Chloride 0.9% 2.5 ML Syringe FLUSH PRN (12:11)
--- NOTE | 2020-01-04 12:14 | EDM.PDOC ---
ED HPI GENERAL MEDICAL PROBLEM - General Chief Complaint: Chest Pain Stated Complaint: CHEST PAIN Time Seen by Provider: 01/04/20 12:10 Source of Information: Reports: Patient History Limitations: Reports: No Limitations - History of Present Illness INITIAL COMMENTS - FREE TEXT/NARRATIVE: 34-year-old male returns for worsening chest pain today. He was seen by me yesterday and was recommended admission given heart score = 4. He declined to be admitted to the hospital. He left the ER pain-free and was told to follow-up with cardiology on Sunday. Last night he slept in a recliner and started having left chest tightness sensation with shortness of breath. Today 15 minutes ago he started having sharp tearing left shoulder pain that radiated to the right shoulder blade and down the sides and to his left jaw/left arm. Pain was rated 6/10, now is 2/10. He decided to come back with these symptoms. He took his prescribed blood pressure medications today. ROS: A 10-point review of systems, other than pertinent positives and negatives as stated per HPI, is otherwise negative Past medical history: No additional pertinent history Past Surgical history: No additional pertinent history Social history: No additional pertinent history Family history: No additional pertinent history PHYSICAL EXAM General: AOx4, GCS = 15, No distress HEENT: dry mucous membrane Neck: supple, no meningismus, no Kernig or Brudzinski Cardiac: S1S2 RRR Respiratory: CTAB, no crackles or rales, no wheezing Abdomen: Soft, nontender, no rebound or guarding, nondistended, no pulsatile mass. Back: nontender Musculoskeletal: NVI distally, no deformity Neuro: No focal deficits, CN 2 - 12 WNL. shoulder blades Pain Score (Numeric/FACES): 6 - Related Data Allergies Allergy/AdvReac Type Severity Reaction Status Date / Time No Known Allergies Allergy Verified 01/04/20 12:06 Home Meds: Home Meds Aspirin 81 mg PO QAM 10/01/18 [History] amLODIPine Besylate [Norvasc] 10 mg PO QAM 10/01/18 [History] hydroCHLOROthiazide [Hydrochlorothiazide] 25 mg PO QAM 10/01/18 [History] Past Medical History HEENT History: Reports: Other (See Below) Other HEENT History: wears glasses Cardiovascular History: Reports: Hypertension Respiratory History: Reports: None Gastrointestinal History: Reports: None, Other (See Below) Genitourinary History: Reports: None Musculoskeletal History: Reports: Gout Neurological History: Reports: Concussion Psychiatric History: Reports: Anxiety Endocrine/Metabolic History: Reports: Obesity/BMI 30+ Hematologic History: Reports: None Immunologic History: Reports: None Oncologic (Cancer) History: Reports: None Dermatologic History: Reports: None - Infectious Disease History Infectious Disease History: Reports: None - Past Surgical History Head Surgeries/Procedures: Reports: None HEENT Surgical History: Reports: Oral Surgery, Tonsillectomy Other HEENT Surgeries/Procedures: wisdom teeth removed Cardiovascular Surgical History: Reports: None Respiratory Surgical History: Reports: None GI Surgical History: Reports: Appendectomy Male Surgical History: Reports: None Musculoskeletal Surgical History: Reports: Arthroscopic Knee Oncologic Surgical History: Reports: None Dermatological Surgical History: Reports: None Social & Family History - Family History Family Medical History: Noncontributory - Tobacco Use Smoking Status *Q: Never Smoker Second Hand Smoke Exposure: No - Caffeine Use Caffeine Use: Reports: None - Recreational Drug Use Recreational Drug Use: No - Living Situation & Occupation Living situation: Reports: Occupation: Employed ED ROS GENERAL - Review of Systems Review Of Systems: Comprehensive ROS is negative, except as noted in HPI. ED EXAM, GENERAL - Physical Exam Exam: See Below EKG INTERPRETATION EKG Interpretation Comments: 102 Bpm, sinus tach, normal QRS interval, TWi on III, T wave flattening on AVF, no STEMI. EKG and rhythm strip interpreted by me at 1207 Course - Vital Signs Last Recorded V/S: Last Vital Signs Temp 96.8 F L 01/04/20 12:06 Pulse 83 01/04/20 13:39 Resp 17 01/04/20 12:06 BP 160/103 H 01/04/20 13:39 Pulse Ox 95 01/04/20 13:39 - Orders/Labs/Meds Orders: Active Orders 24 hr Category Date Time Status EKG Documentation Completion [RC] STAT Care 01/04/20 12:12 Active Ang Chest [CT] Stat Exams 01/04/20 13:00 Taken Sodium Chloride 0.9% [Saline Flush] Med 01/04/20 12:11 Active 10 ml FLUSH ASDIRECTED PRN Sodium Chloride 0.9% [Saline Flush] Med 01/04/20 12:11 Active 2.5 ml FLUSH ASDIRECTED PRN Saline Lock Insert [OM.PC] Stat Oth 01/04/20 12:11 Ordered Medication Orders Sodium Chloride (Saline Flush) 10 ml FLUSH ASDIRECTED PRN PRN Reason: Keep Vein Open Sodium Chloride (Saline Flush) 2.5 ml FLUSH ASDIRECTED PRN PRN Reason: Keep Vein Open Labs: Laboratory Tests 01/04/20 01/04/20 Range/Units 12:10 12:10 WBC 5.28 (4.0-11.0) K/uL RBC 5.32 (4.50-5.90) M/uL Hgb 15.3 (13.0-17.0) g/dL Hct 45.0 (38.0-50.0) % MCV 84.6 (80.0-98.0) fL MCH 28.8 (27.0-32.0) pg MCHC 34.0 (31.0-37.0) g/dL RDW Std Deviation 41.4 (28.0-62.0) fl RDW Coeff of Ramírez 14 (11.0-15.0) % Plt Count 268 (150-400) K/uL MPV 9.40 (7.40-12.00) fL Neut % (Auto) 57.2 (48.0-80.0) % Lymph % (Auto) 28.0 (16.0-40.0) % [place] % (Auto) 12.9 (0.0-15.0) % Eos % (Auto) 1.3 (0.0-7.0) % Baso % (Auto) 0.6 (0.0-1.5) % Neut # (Auto) 3.0 (1.4-5.7) K/uL Lymph # (Auto) 1.5 (0.6-2.4) K/uL [place] # (Auto) 0.7 (0.0-0.8) K/uL Eos # (Auto) 0.1 (0.0-0.7) K/uL Baso # (Auto) 0.0 (0.0-0.1) K/uL Nucleated RBC % 0.0 /100WBC Nucleated RBCs # 0 K/uL Sodium 134 L (136-148) mmol/L Potassium 3.6 (3.5-5.1) mmol/L Chloride 97 L (98-107) mmol/L Carbon Dioxide 28.0 (21.0-32.0) mmol/L BUN 10 (7.0-18.0) mg/dL Creatinine 1.3 (0.8-1.3) mg/dL Est Cr Clr Drug Dosing 91.33 mL/min Estimated GFR (MDRD) > 60.0 ml/min Glucose 111 H (74-106) mg/dL Calcium 9.1 (8.5-10.1) mg/dL Total Bilirubin 0.7 (0.2-1.0) mg/dL AST 32 (15-37) IU/L ALT 59 (14-63) IU/L Alkaline Phosphatase 73 (46-116) U/L Troponin I < 0.050 (0.000-0.056) ng/mL Total Protein 8.7 H (6.4-8.2) g/dL Albumin 4.5 (3.4-5.0) g/dL Globulin 4.2 H (2.6-4.0) g/dL Albumin/Globulin Ratio 1.1 (0.9-1.6) Meds: Medications Generic Name Dose Route Start Last Admin Trade Name Freq PRN Reason Stop Dose Admin Sodium Chloride 10 ml 01/04/20 12:11 Saline Flush FLUSH ASDIRECTED PRN Keep Vein Open Sodium Chloride 2.5 ml 01/04/20 12:11 Saline Flush FLUSH ASDIRECTED PRN Keep Vein Open Discontinued Medications Generic Name Dose Route Start Last Admin Trade Name Freq PRN Reason Stop Dose Admin Lactated Ringer's 1,000 mls @ 999 mls/hr 01/04/20 13:00 01/04/20 13:21 Ringers, Lactated IV 01/04/20 14:00 999 mls/hr .BOLUS ONE Administration Iopamidol 100 ml 01/04/20 13:31 01/04/20 13:31 Isovue-370 (76%) IVPUSH 01/04/20 13:32 100 ml ONETIME ONE Administration Labetalol HCl 20 mg 01/04/20 12:52 01/04/20 13:07 Normodyne IVPUSH 01/04/20 12:53 20 mg ONETIME ONE Administration Protocol Nitroglycerin 0.4 mg 01/04/20 12:53 Nitrostat SL Q5M PRN Chest Pain - Re-Assessments/Exams Free Text/Narrative Re-Assessment/Exam: 01/04/20 15:[address] Casas, who agrees to admit patient. The hospitalist's documentation supersedes all other documentation on this patient with regard to any conflicts or discrepancies from this point forward. Any emergency conditions have been treated to the ability of the ED prior to admission. Departure - Departure Time of Disposition: 15:22 Disposition: Refer to Observation Condition: Good Clinical Impression: Atypical chest pain, Hypertension Instructions: Nonspecific Chest Pain, Adult Referrals: Taj Mishra MD [Primary Care Provider] - Forms: ED Department Discharge Sepsis Event Note (ED) - Evaluation Sepsis Screening Result: No Definite Risk - Focused Exam Vital Signs: Vital Signs Temp Pulse Resp BP Pulse Ox 01/04/20 13:39 83 160/103 H 95 01/04/20 13:15 83 178/114 H 96 01/04/20 13:12 93 177/101 H 96 01/04/20 13:05 107 H 189/107 H 97 01/04/20 12:06 96.8 F L 111 H 17 190/112 H 97 - My Orders Last 24 Hours: My Active Orders 01/04/20 12:11 Sodium Chloride 0.9% [Saline Flush] 10 ml FLUSH ASDIRECTED PRN Sodium Chloride 0.9% [Saline Flush] 2.5 ml FLUSH ASDIRECTED PRN Saline Lock Insert [OM.PC] Stat 01/04/20 12:12 EKG Documentation Completion [RC] STAT 01/04/20 13:00 Ang Chest [CT] Stat - Assessment/Plan Last 24 Hours: My Active Orders 01/04/20 12:11 Sodium Chloride 0.9% [Saline Flush] 10 ml FLUSH ASDIRECTED PRN Sodium Chloride 0.9% [Saline Flush] 2.5 ml FLUSH ASDIRECTED PRN Saline Lock Insert [OM.PC] Stat 01/04/20 12:12 EKG Documentation Completion [RC] STAT 01/04/20 13:00 Ang Chest [CT] Stat
[2020-01-04 12:52] LABS: BLOOD UREA NITROGEN,BUN 10 mg/dL (7.0-18.0); CHLORIDE,CL 97 mmol/L (98-107); GLUCOSE RANDOM 111 mg/dL (74-106); POTASSIUM,K 3.6 mmol/L (3.5-5.1); SODIUM,NA 134 mmol/L (136-148)
[2020-01-04] MEDS ORDERED: Labetalol 100 MG/20 ML MDV IVPUSH ONE (12:52)
[2020-01-04] MEDS ORDERED: Nitroglycerin 0.4 MG Tab.SL SL PRN (12:53)
[2020-01-04] MEDS ORDERED: Lactated Ringers 1,000 ML IV ONE (13:00)
[2020-01-04] MEDS ORDERED: Iopamidol 755 Mg/ML 100 ML Bottle IVPUSH ONE (13:31)
[2020-01-04] MEDS ORDERED: Lisinopril 10 MG Tab PO ONE (22:43)
--- NOTE | 2020-01-04 22:48 | PCM.HP.2 ---
H&P History of Present Illness - General Date of Service: 01/04/20 Admit Problem/Dx: Admission Diagnosis/Problem Admission Diagnosis/Problem Chest pain - History of Present Illness Initial Comments - Free Text/Narative: 34 yo male with pmh of hypertension who presents with two day history of chest pain. PAtient describes sharp left scapular pain that radiates to the jaw. He reports feeling the pressure of his heartbeat in his neck. He reports having similar symptoms several years ago before he started taking blood pressure medications. His blood pressure was noted to be in the 190s systolic. He was given labetalol in the ED with resolution of his chest pain and improvement of his blood pressure. shoulder blades Pain Score (Numeric/FACES): 1 - Related Data Allergies/Adverse Reactions: Allergies Allergy/AdvReac Type Severity Reaction Status Date / Time No Known Allergies Allergy Verified 01/04/20 17:48 Home Medications: Home Meds Aspirin 81 mg PO QAM 10/01/18 [History] amLODIPine Besylate [Norvasc] 10 mg PO QAM 10/01/18 [History] hydroCHLOROthiazide [Hydrochlorothiazide] 25 mg PO QAM 10/01/18 [History] lisinopriL [Lisinopril] 10 mg PO DAILY 30 Days #30 tablet 01/05/20 [Rx] Past Medical History HEENT History: Reports: Other (See Below) Other HEENT History: wears glasses Cardiovascular History: Reports: Hypertension Respiratory History: Reports: None Gastrointestinal History: Reports: None, Other (See Below) Genitourinary History: Reports: None Musculoskeletal History: Reports: Gout Neurological History: Reports: Concussion Psychiatric History: Reports: Anxiety Endocrine/Metabolic History: Reports: Obesity/BMI 30+ Hematologic History: Reports: None Immunologic History: Reports: None Oncologic (Cancer) History: Reports: None Dermatologic History: Reports: None - Infectious Disease History Infectious Disease History: Reports: None - Past Surgical History Head Surgeries/Procedures: Reports: None HEENT Surgical History: Reports: Oral Surgery, Tonsillectomy Other HEENT Surgeries/Procedures: wisdom teeth removed Cardiovascular Surgical History: Reports: None Respiratory Surgical History: Reports: None GI Surgical History: Reports: Appendectomy Male Surgical History: Reports: None Musculoskeletal Surgical History: Reports: Arthroscopic Knee Oncologic Surgical History: Reports: None Dermatological Surgical History: Reports: None Social & Family History - Family History Family Medical History: Noncontributory - Tobacco Use Smoking Status *Q: Never Smoker Second Hand Smoke Exposure: No - Caffeine Use Caffeine Use: Reports: None - Alcohol Use Days Per Week of Alcohol Use: 2 Number of Drinks Per Day: 0 Total Drinks Per Week: 0 - Recreational Drug Use Recreational Drug Use: No - Living Situation & Occupation Living situation: Reports: Occupation: Employed H&P Review of Systems - Review of Systems: Review Of Systems: Comprehensive ROS is negative, except as noted in HPI. Exam - Exam Exam: See Below - Vital Signs Vital Signs: Last Vital Signs Temp 36.5 C 01/04/20 19:26 Pulse 73 01/04/20 19:26 Resp 18 01/04/20 19:26 BP 150/94 H 01/04/20 19:26 Pulse Ox 96 01/04/20 19:26 Weight: 111.13 kg - Exam General: Alert, Oriented HEENT: Mucosa Moist & [place] Neck: Supple Lungs: Clear to Auscultation, Normal Respiratory Effort Cardiovascular: Regular Rate, Regular Rhythm GI/Abdominal Exam: Normal Bowel Sounds, Soft, Non-Tender Extremities: Non-Tender, No Pedal Edema Skin: Warm, Dry, Intact - Patient Data Lab Results Last 24 hrs: Laboratory Results - last 24 hr 01/04/20 01/04/20 01/04/20 Range/Units 12:10 12:10 15:37 WBC 5.28 (4.0-11.0) K/uL RBC 5.32 (4.50-5.90) M/uL Hgb 15.3 (13.0-17.0) g/dL Hct 45.0 (38.0-50.0) % MCV 84.6 (80.0-98.0) fL MCH 28.8 (27.0-32.0) pg MCHC 34.0 (31.0-37.0) g/dL RDW Std Deviation 41.4 (28.0-62.0) fl RDW Coeff of Ramírez 14 (11.0-15.0) % Plt Count 268 (150-400) K/uL MPV 9.40 (7.40-12.00) fL Neut % (Auto) 57.2 (48.0-80.0) % Lymph % (Auto) 28.0 (16.0-40.0) % [place] % (Auto) 12.9 (0.0-15.0) % Eos % (Auto) 1.3 (0.0-7.0) % Baso % (Auto) 0.6 (0.0-1.5) % Neut # (Auto) 3.0 (1.4-5.7) K/uL Lymph # (Auto) 1.5 (0.6-2.4) K/uL [place] # (Auto) 0.7 (0.0-0.8) K/uL Eos # (Auto) 0.1 (0.0-0.7) K/uL Baso # (Auto) 0.0 (0.0-0.1) K/uL Nucleated RBC % 0.0 /100WBC Nucleated RBCs # 0 K/uL Sodium 134 L (136-148) mmol/L Potassium 3.6 (3.5-5.1) mmol/L Chloride 97 L (98-107) mmol/L Carbon Dioxide 28.0 (21.0-32.0) mmol/L BUN 10 (7.0-18.0) mg/dL Creatinine 1.3 (0.8-1.3) mg/dL Est Cr Clr Drug Dosing 91.33 mL/min Estimated GFR (MDRD) > 60.0 ml/min Glucose 111 H (74-106) mg/dL Calcium 9.1 (8.5-10.1) mg/dL Total Bilirubin 0.7 (0.2-1.0) mg/dL AST 32 (15-37) IU/L ALT 59 (14-63) IU/L Alkaline Phosphatase 73 (46-116) U/L Troponin I < 0.050 (0.000-0.056) ng/mL Total Protein 8.7 H (6.4-8.2) g/dL Albumin 4.5 (3.4-5.0) g/dL Globulin 4.2 H (2.6-4.0) g/dL Albumin/Globulin Ratio 1.1 (0.9-1.6) COVID-19 (JANNET) NEGATIVE (NEGATIVE) 01/04/20 Range/Units 18:07 WBC (4.0-11.0) K/uL RBC (4.50-5.90) M/uL Hgb (13.0-17.0) g/dL Hct (38.0-50.0) % MCV (80.0-98.0) fL MCH (27.0-32.0) pg MCHC (31.0-37.0) g/dL RDW Std Deviation (28.0-62.0) fl RDW Coeff of Ramírez (11.0-15.0) % Plt Count (150-400) K/uL MPV (7.40-12.00) fL Neut % (Auto) (48.0-80.0) % Lymph % (Auto) (16.0-40.0) % [place] % (Auto) (0.0-15.0) % Eos % (Auto) (0.0-7.0) % Baso % (Auto) (0.0-1.5) % Neut # (Auto) (1.4-5.7) K/uL Lymph # (Auto) (0.6-2.4) K/uL [place] # (Auto) (0.0-0.8) K/uL Eos # (Auto) (0.0-0.7) K/uL Baso # (Auto) (0.0-0.1) K/uL Nucleated RBC % /100WBC Nucleated RBCs # K/uL Sodium (136-148) mmol/L Potassium (3.5-5.1) mmol/L Chloride (98-107) mmol/L Carbon Dioxide (21.0-32.0) mmol/L BUN (7.0-18.0) mg/dL Creatinine (0.8-1.3) mg/dL Est Cr Clr Drug Dosing mL/min Estimated GFR (MDRD) ml/min Glucose (74-106) mg/dL Calcium (8.5-10.1) mg/dL Total Bilirubin (0.2-1.0) mg/dL AST (15-37) IU/L ALT (14-63) IU/L Alkaline Phosphatase (46-116) U/L Troponin I < 0.050 (0.000-0.056) ng/mL Total Protein (6.4-8.2) g/dL Albumin (3.4-5.0) g/dL Globulin (2.6-4.0) g/dL Albumin/Globulin Ratio (0.9-1.6) COVID-19 (JANNET) (NEGATIVE) Result Diagrams: 01/04/20 12:10 01/04/20 12:10 Sepsis Event Note - Evaluation Sepsis Screening Result: No Definite Risk - Focused Exam Vital Signs: Vital Signs Temp Pulse Resp BP Pulse Ox 01/04/20 19:26 36.5 C 73 18 150/94 H 96 01/04/20 18:40 73 142/82 H 01/04/20 17:30 66 148/102 H 01/04/20 17:20 36.8 C 65 18 165/112 H 96 01/04/20 16:39 87 156/96 H 96 01/04/20 16:09 81 143/95 H 95 01/04/20 15:45 80 153/104 H 95 01/04/20 14:09 85 145/98 H 99 01/04/20 13:39 83 160/103 H 95 01/04/20 13:15 83 178/114 H 96 01/04/20 13:12 93 177/101 H 96 01/04/20 13:05 107 H 189/107 H 97 01/04/20 12:06 36.0 C L 111 H 17 190/112 H 97 Date Exam was Performed: 01/05/20 Time Exam was Performed: 18:39 Problem List Initiated/Reviewed/Updated: Yes Orders Last 24hrs: Active Orders 24 hr Category Date Time Status Admission Status [Patient Status] [ADT] Stat ADT 01/04/20 15:23 Active Telemetry Monitoring [Cardiac Monitoring] [RC] . Care 01/04/20 17:06 Active DIRECTED Regular Diet [DIET] Diet 01/04/20 Dinner Active Ang Chest [CT] Stat Exams 01/04/20 13:00 Taken TROPONIN I [CHEM] Q6H Lab 01/05/20 00:00 Ordered Aspirin Med 01/05/20 09:00 Ordered 81 mg PO QAM Sodium Chloride 0.9% [Saline Flush] Med 01/04/20 12:11 Active 10 ml FLUSH ASDIRECTED PRN Sodium Chloride 0.9% [Saline Flush] Med 01/04/20 12:11 Active 2.5 ml FLUSH ASDIRECTED PRN amLODIPine Med 01/05/20 09:00 Ordered 10 mg PO QAM hydroCHLOROthiazide Med 01/05/20 09:00 Ordered 25 mg PO QAM lisinopriL [Prinivil] Med 01/04/20 22:43 Once 10 mg PO ONETIME ONE Saline Lock Insert [OM.PC] Stat Oth 01/04/20 12:11 Ordered Medication Orders Aspirin (Aspirin) 81 mg PO QAM BRAYAN Hydrochlorothiazide (Hydrochlorothiazide) 25 mg PO QAM BRAYAN Lisinopril (Prinivil) 10 mg PO ONETIME ONE Stop: 01/04/20 22:44 Non-Formulary Medication (Amlodipine) 10 mg PO QAM BRAYAN Sodium Chloride (Saline Flush) 10 ml FLUSH ASDIRECTED PRN PRN Reason: Keep Vein Open Sodium Chloride (Saline Flush) 2.5 ml FLUSH ASDIRECTED PRN PRN Reason: Keep Vein Open Assessment/Plan Comment:: 34 yo male admitted for chest pain and hypertension. His chest pain has resolved. We will trend cardiac enzymes. Will start additional antihypertensive of lisinopril and monitor overnight.
[2020-01-05] MEDS ORDERED: Aspirin 81 MG Tab.Chew PO SCH (09:00)
[2020-01-05] MEDS ORDERED: Hydrochlorothiazide 25 MG Tab PO SCH (09:00)
[2020-01-05] MEDS ORDERED: amLODIPine 5 MG Tab PO SCH (09:00)
--- NOTE | 2020-01-05 10:10 | PCM.DCSUM1 ---
<Aaron Prince - Last Filed: 01/05/20 10:15> Discharge Summary - Hospital Course Free Text/Narrative:: 34-year-old male admitted for chest pain and HTN. He does have a history of HTN and takes amlodipine and HCTZ. Patient had no reported events on telemetry. EKG on admission showed no acute ischemic changes. Troponins were trended and were negative. Patient was started on lisinopril to optimize blood pressure control. He reported feeling much better and back to his baseline on day of discharge. Stress test was recommended on discharge and offered to schedule for patient, however, he wanted to discuss with his PCP Dr. Mishra first. Patient discharged in stable condition. - Discharge Data Discharge Date: 01/05/20 Discharge Disposition: Home, Self-Care 01 Condition: Stable - Referral to Home Health Primary Care Physician: Taj Mishra MD - Patient Instructions Diet: Heart Healthy Diet Activity: As Tolerated Notify Provider of: Fever, Increased Pain, Swelling and Redness, Drainage, Nausea and/or Vomiting - Discharge Plan *PRESCRIPTION DRUG MONITORING PROGRAM REVIEWED*: Not Applicable *COPY OF PRESCRIPTION DRUG MONITORING REPORT IN PATIENT MARGA: Not Applicable Prescriptions/Med Rec: lisinopriL [Lisinopril] 10 mg PO DAILY 30 Days #30 tablet Home Medications: Home Meds Aspirin 81 mg PO QAM 10/01/18 [History] amLODIPine Besylate [Norvasc] 10 mg PO QAM 10/01/18 [History] hydroCHLOROthiazide [Hydrochlorothiazide] 25 mg PO QAM 10/01/18 [History] lisinopriL [Lisinopril] 10 mg PO DAILY 30 Days #30 tablet 01/05/20 [Rx] Oxygen Therapy Mode: Room Air Patient Handouts: Nonspecific Chest Pain, Adult, Hypertension, Adult, [id number], Preventing Hypertension, Lisinopril tablets Referrals: Taj Mishra MD [Primary Care Provider] - 01/12/20 1:45 pm (Please arrive 15 minutes early with your identification and insurance cards and your own facemask.) - Discharge Summary/Plan Comment DC Time >30 min.: No - Patient Data Vitals - Most Recent: Last Vital Signs Temp 36.5 C 01/05/20 07:15 Pulse 68 01/05/20 07:15 Resp 16 01/05/20 07:15 BP 127/72 08/03/20 08:31 Pulse Ox 96 01/05/20 07:15 Weight - Most Recent: 111.13 kg I&O - Last 24 hours: Intake & Output 01/04/20 01/05/20 01/05/20 22:59 06:59 14:59 Intake Total 2000 Output Total 525 Balance 1475 Lab Results - Last 24 hrs: Laboratory Results - last 24 hr 01/04/20 01/04/20 01/04/20 Range/Units 12:10 12:10 15:37 WBC 5.28 (4.0-11.0) K/uL RBC 5.32 (4.50-5.90) M/uL Hgb 15.3 (13.0-17.0) g/dL Hct 45.0 (38.0-50.0) % MCV 84.6 (80.0-98.0) fL MCH 28.8 (27.0-32.0) pg MCHC 34.0 (31.0-37.0) g/dL RDW Std Deviation 41.4 (28.0-62.0) fl RDW Coeff of Ramírez 14 (11.0-15.0) % Plt Count 268 (150-400) K/uL MPV 9.40 (7.40-12.00) fL Neut % (Auto) 57.2 (48.0-80.0) % Lymph % (Auto) 28.0 (16.0-40.0) % [place] % (Auto) 12.9 (0.0-15.0) % Eos % (Auto) 1.3 (0.0-7.0) % Baso % (Auto) 0.6 (0.0-1.5) % Neut # (Auto) 3.0 (1.4-5.7) K/uL Lymph # (Auto) 1.5 (0.6-2.4) K/uL [place] # (Auto) 0.7 (0.0-0.8) K/uL Eos # (Auto) 0.1 (0.0-0.7) K/uL Baso # (Auto) 0.0 (0.0-0.1) K/uL Nucleated RBC % 0.0 /100WBC Nucleated RBCs # 0 K/uL Sodium 134 L (136-148) mmol/L Potassium 3.6 (3.5-5.1) mmol/L Chloride 97 L (98-107) mmol/L Carbon Dioxide 28.0 (21.0-32.0) mmol/L BUN 10 (7.0-18.0) mg/dL Creatinine 1.3 (0.8-1.3) mg/dL Est Cr Clr Drug Dosing 91.33 mL/min Estimated GFR (MDRD) > 60.0 ml/min Glucose 111 H (74-106) mg/dL Calcium 9.1 (8.5-10.1) mg/dL Total Bilirubin 0.7 (0.2-1.0) mg/dL AST 32 (15-37) IU/L ALT 59 (14-63) IU/L Alkaline Phosphatase 73 (46-116) U/L Troponin I < 0.050 (0.000-0.056) ng/mL Total Protein 8.7 H (6.4-8.2) g/dL Albumin 4.5 (3.4-5.0) g/dL Globulin 4.2 H (2.6-4.0) g/dL Albumin/Globulin Ratio 1.1 (0.9-1.6) COVID-19 (JANNET) NEGATIVE (NEGATIVE) 01/04/20 01/05/20 Range/Units 18:07 00:10 WBC (4.0-11.0) K/uL RBC (4.50-5.90) M/uL Hgb (13.0-17.0) g/dL Hct (38.0-50.0) % MCV (80.0-98.0) fL MCH (27.0-32.0) pg MCHC (31.0-37.0) g/dL RDW Std Deviation (28.0-62.0) fl RDW Coeff of Ramírez (11.0-15.0) % Plt Count (150-400) K/uL MPV (7.40-12.00) fL Neut % (Auto) (48.0-80.0) % Lymph % (Auto) (16.0-40.0) % [place] % (Auto) (0.0-15.0) % Eos % (Auto) (0.0-7.0) % Baso % (Auto) (0.0-1.5) % Neut # (Auto) (1.4-5.7) K/uL Lymph # (Auto) (0.6-2.4) K/uL [place] # (Auto) (0.0-0.8) K/uL Eos # (Auto) (0.0-0.7) K/uL Baso # (Auto) (0.0-0.1) K/uL Nucleated RBC % /100WBC Nucleated RBCs # K/uL Sodium (136-148) mmol/L Potassium (3.5-5.1) mmol/L Chloride (98-107) mmol/L Carbon Dioxide (21.0-32.0) mmol/L BUN (7.0-18.0) mg/dL Creatinine (0.8-1.3) mg/dL Est Cr Clr Drug Dosing mL/min Estimated GFR (MDRD) ml/min Glucose (74-106) mg/dL Calcium (8.5-10.1) mg/dL Total Bilirubin (0.2-1.0) mg/dL AST (15-37) IU/L ALT (14-63) IU/L Alkaline Phosphatase (46-116) U/L Troponin I < 0.050 < 0.050 (0.000-0.056) ng/mL Total Protein (6.4-8.2) g/dL Albumin (3.4-5.0) g/dL Globulin (2.6-4.0) g/dL Albumin/Globulin Ratio (0.9-1.6) COVID-19 (JANNET) (NEGATIVE) Med Orders - Current: Current Medications Amlodipine Besylate (Norvasc) 10 mg PO [facility] Last Admin: 01/05/20 08:31 Dose: 10 mg Documented by: Aspirin (Aspirin) 81 mg PO [facility] Last Admin: 01/05/20 08:31 Dose: 81 mg Documented by: Hydrochlorothiazide (Hydrochlorothiazide) 25 mg PO [facility] Last Admin: 01/05/20 08:31 Dose: 25 mg Documented by: Sodium Chloride (Saline Flush) 10 ml FLUSH ASDIRECTED PRN PRN Reason: Keep Vein Open Sodium Chloride (Saline Flush) 2.5 ml FLUSH ASDIRECTED PRN PRN Reason: Keep Vein Open Discontinued Medications Lactated Ringer's (Ringers, Lactated) 1,000 mls @ 999 mls/hr IV .BOLUS ONE Stop: 01/04/20 14:00 Last Admin: 01/04/20 13:21 Dose: 999 mls/hr Documented by: Iopamidol (Isovue-370 (76%)) 100 ml IVPUSH ONETIME ONE Stop: 01/04/20 13:32 Last Admin: 01/04/20 13:31 Dose: 100 ml Documented by: Labetalol HCl (Normodyne) 20 mg IVPUSH ONETIME ONE; Protocol Stop: 01/04/20 12:53 Last Admin: 01/04/20 13:07 Dose: 20 mg Documented by: Lisinopril (Prinivil) 10 mg PO ONETIME ONE Stop: 01/04/20 22:44 Last Admin: 01/04/20 23:05 Dose: 10 mg Documented by: Nitroglycerin (Nitrostat) 0.4 mg SL Q5M PRN PRN Reason: Chest Pain <Aj Johnson - Last Filed: 01/05/20 18:39> Discharge Summary - Referral to Home Health Primary Care Physician: Taj Mishra MD - Patient Data Vitals - Most Recent: Last Vital Signs Temp 36.5 C 01/05/20 07:15 Pulse 68 01/05/20 07:15 Resp 16 01/05/20 07:15 BP 127/72 01/05/20 08:31 Pulse Ox 96 01/05/20 07:15 I&O - Last 24 hours: Intake & Output 01/05/20 01/05/20 01/05/20 06:59 14:59 22:59 Intake Total 1999 1000 Output Total 525 1300 Balance 1475 -300 Lab Results - Last 24 hrs: Laboratory Results - last 24 hr 01/05/20 Range/Units 00:10 Troponin I < 0.050 (0.000-0.056) ng/mL Med Orders - Current: Current Medications Discontinued Medications Amlodipine Besylate (Norvasc) 10 mg PO [facility] Last Admin: 01/05/20 08:31 Dose: 10 mg Documented by: Aspirin (Aspirin) 81 mg PO [facility] Last Admin: 01/05/20 08:31 Dose: 81 mg Documented by: Hydrochlorothiazide (Hydrochlorothiazide) 25 mg PO [facility] Last Admin: 01/05/20 08:31 Dose: 25 mg Documented by: Lactated Ringer's (Ringers, Lactated) 1,000 mls @ 999 mls/hr IV .BOLUS ONE Stop: 01/04/20 14:00 Last Admin: 01/04/20 13:21 Dose: 999 mls/hr Documented by: Iopamidol (Isovue-370 (76%)) 100 ml IVPUSH ONETIME ONE Stop: 01/04/20 13:32 Last Admin: 01/04/20 13:31 Dose: 100 ml Documented by: Labetalol HCl (Normodyne) 20 mg IVPUSH ONETIME ONE; Protocol Stop: 01/04/20 12:53 Last Admin: 01/04/20 13:07 Dose: 20 mg Documented by: Lisinopril (Prinivil) 10 mg PO ONETIME ONE Stop: 01/04/20 22:44 Last Admin: 01/04/20 23:05 Dose: 10 mg Documented by: Nitroglycerin (Nitrostat) 0.4 mg SL Q5M PRN PRN Reason: Chest Pain Sodium Chloride (Saline Flush) 10 ml FLUSH ASDIRECTED PRN PRN Reason: Keep Vein Open Sodium Chloride (Saline Flush) 2.5 ml FLUSH ASDIRECTED PRN PRN Reason: Keep Vein Open - Free Text/Narrative Note: I have seen and evaluated the patient with the resident. I have discussed findings and treatment plan with the resident. I agree with the assessment and plan outlined in the following note.
--- NOTE | 2020-01-05 15:48 | CT ---
EXAM DATE: 01/04/20 PATIENT'S AGE: 34 INDICATION: Jaw pain. High blood pressure. COMPARISON: CT chest 03 January 2020. TECHNIQUE: 100 mL Isovue-370 IV contrast with arterial imaging from hyoid to mid pelvis. FINDINGS: Normal aortic caliber without dissection. No central pulmonary artery filling defect. Lung parenchyma remains clear. Abdominal aortic caliber is normal with patent mesenteric and retroperitoneal major branch vessels. No inflammation or dilatation of the visualized large or small bowel. Minor osteoarthritis incompletely assessed at sacroiliac joints. IMPRESSION: 1. Normal air in caliber without dissection. 2. No significant findings to account for reported symptoms. Please note that all CT scans at this facility use dose modulation, iterative reconstruction, and/or weight-based dosing when appropriate to reduce radiation dose to as low as reasonably achievable. Dictated by Francisco J Tinsley MD @ Jan 04 2020 2:03PM Signed by Dr. Francisco J Tinsley @ Jan 04 2020 2:23PM Report Signed by Proxy. MTDD
== END 2020-01-05 10:30 | disposition home or self-care (01) ==
LOC: MW.ED 12:00 → MW.MS 15:23
PROVIDERS: ADMIT Internal Medicine; ATTEND Internal Medicine
DX: R07.89 Other chest pain (principal); I10 Essential (primary) hypertension; F41.9 Anxiety disorder, unspecified; E66.9 Obesity, unspecified; M10.9 Gout, unspecified; Z20.828 Contact with and (suspected) exposure to other viral communicable diseases; Z79.82 Long term (current) use of aspirin; Z79.899 Other long term (current) drug therapy; Z68.31 Body mass index [BMI] 31.0-31.9, adult
CPT/HCPCS: 36415; 71275; 74175; 80053; 84484; 85025; 87635; 93005; 96374; 99285; A9270; G0378; J3490; J7120; Q9967; 99283; U0002

== ENCOUNTER 2020-01-08 23:43 | Emergency (ER) | payer OTHER, BC ==
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
[2020-01-09] MEDS ORDERED: Aspirin 325 MG Tab PO ONE (00:12)
[2020-01-09] MEDS ORDERED: Diazepam 5 MG Tab PO ONE (00:12)
[2020-01-09] MEDS ORDERED: Acetaminophen 325 MG Tab PO ONE (00:12)
--- NOTE | 2020-01-09 00:55 | CR ---
INDICATION: Chest pain TECHNIQUE: Chest radiograph 1 view COMPARISON: 08/05/2018 FINDINGS: Mediastinum: The mediastinum is normal in appearance. The heart silhouette is normal in size and morphology. Lung: Both lungs are unremarkable in appearance. No sign of pleural effusion seen. No pneumothorax is identified. Bone and Soft tissue: Unremarkable for age. IMPRESSION: 1. No acute cardiopulmonary disease is seen. Dictated by: All Fung MD @ 01/09/2020 00:54:05 (Electronically Signed)
[2020-01-09 01:15] LABS: BLOOD UREA NITROGEN,BUN 11 mg/dL (7.0-18.0); CARBON DIOXIDE,CO2 25.8 mmol/L (21.0-32.0); CHLORIDE,CL 94 mmol/L (98-107); GLUCOSE RANDOM 119 mg/dL (74-106); POTASSIUM,K 3.2 mmol/L (3.5-5.1); SODIUM,NA 130 mmol/L (136-148)
[2020-01-09] MEDS ORDERED: Potassium Chloride 10% 20 MEQ/15 ML Soln 30 ML UD Cup PO ONE (01:54)
== END 2020-01-09 02:41 | disposition home or self-care (01) ==
LOC: MW.ED 23:43
DX: R07.89 Other chest pain (principal); I10 Essential (primary) hypertension; M10.9 Gout, unspecified; F41.9 Anxiety disorder, unspecified; E66.9 Obesity, unspecified; Z68.31 Body mass index [BMI] 31.0-31.9, adult; F17.210 Nicotine dependence, cigarettes, uncomplicated; Z79.82 Long term (current) use of aspirin; Z79.899 Other long term (current) drug therapy
CPT/HCPCS: 36415; 71045; 80048; 83880; 84484; 85025; 85379; 93005; 99285; A9270; 99283

== ENCOUNTER 2020-04-07 12:55 | Emergency (ER) | payer OTHER, BC ==
[2020-04-07] MEDS ORDERED: ceFAZolin 2 GM in Premix Bag 1 BAG IV ONE (13:14)
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
--- NOTE | 2020-04-07 14:57 | EDM.PDOC ---
ED HPI GENERAL MEDICAL PROBLEM - General Chief Complaint: Upper Extremity Injury/Pain Stated Complaint: LACERATION OF FINGER TIP Time Seen by Provider: 04/07/20 13:10 - History of Present Illness INITIAL COMMENTS - FREE TEXT/NARRATIVE: HISTORY AND PHYSICAL: History of present illness: This is a 34-year-old gentleman who presents ER today secondary to injury to his left index finger. Patient is right-hand dominant. Patient reports he was wearing a glove while at work his index finger got caught between 2 pieces of steel and he tried to pull it out. Patient reports that he is missing the distal aspect of his left index finger and is still in his glove. Patient denies any other symptomatology. Patient denies any history of hypertension, diabetes, liver, lung, kidney problems. Patient denies any tobacco alcohol or drugs. Patient denies any other abdominal or chest surgeries. Patient has no known drug allergies. Review of systems: As per history of present illness and below otherwise all systems reviewed and negative. Past medical history: As per history of present illness and as reviewed below otherwise noncontributory. Surgical history: As per history of present illness and as reviewed below otherwise noncontributory. Social history: No reported history of drug or alcohol abuse. Family history: As per history of present illness and as reviewed below otherwise noncontributory. Physical exam: Constitutional: Patient is oriented to person, place, and time. Appears well- developed and well-nourished. No distress. HEENT: Moist mucous membranes Head: Normocephalic and atraumatic Eyes: Right eye exhibits no discharge. Left eye exhibits no discharge. No scleral icterus Neck: Normal range of motion. No tracheal deviation present. Cardiovascular: Normal rate and regular rhythm. Pulmonary: Effort normal, no respiratory distress. Abdominal: No distention Musculoskeletal: Normal range of motion Neurologic: Alert and oriented to person, place and time. Skin: [place], warm and dry. Psychiatric: Normal mood and affect. Behavior is normal. Judgment and thought content normal. Nursing note and vital signs have been reviewed Patient is ER physical exam is significant for avulsion/amputation of patient's volar aspect of his left distal index finger/tuft. Avulsion involves approximately two thirds of the distal phalanx. Patient is neurovascularly intact. Approximately half of the patient's nailbed is also avulsed off. Small amount of bony prominences palpable underneath the fatty soft tissue. Within the patient's glove a amputation of the volar aspect of the distal two thirds of the distal phalanx is evaluated. Within that amputated fragment is a small amount of the fingernail bed. Diagnostics: X-ray of left index finger Avulsion of distal bony tip of left index finger with avulsion of the soft tissue identified as well. Therapeutics: Ancef 2 g IV Assessment and plan: This is a 34-year-old gentleman who presents ER today with an amputation of the volar aspect of his distal second phalanx of his left hand. I have discussed with Dr. Mays our orthopedic surgeon who feels that patient will be best served being evaluated by hand surgery at [facility]. I have discussed this with the patient and at this time patient does not wish to be transferred up to [facility] to be evaluated by hand surgery. I have given the patient the option of suturing the skin is a protective barrier here in the ED. I have discussed with the patient that I did not feel that that was the optimal course of action that he would best served with being transferred to [facility] to be evaluated by hand specialist to optimize likelihood of the best outcome and minimize the likelihood of infection. Patient is adamant about not wanting to be transferred and is requested that we " do our best" here at [place]. Patient understands it is not my area of expertise and although I have had some limited experience with placing the avulsed tissue back on place, I once again emphasized to him that I thought it would be best for him to be transferred and if it was my finger that is what I would recommend in this what I would do. Patient has been given multiple opportunities to allow me to contact the hand surgeon at [place] for transfer however he is refusing. Patient reports that he wants me to stitch the skin back on and just let it heal on its own. I have discussed with the patient that I would stage the amputated skin back onto his finger and could transfer him up to [facility] to be evaluated by the hand surgeon there. He is agreed to allow me to stitch to the amputated portion off but at this time he is deferring transfer to [facility]. Patient reports that he will go if he changes mind. Patient has agreed that if he does not go to [facility] that he will return to the ER here tomorrow for me to reevaluate the wound to make sure that no infection that healing is occurring appropriately. Procedure note: Digital nerve block performed of the left second digit with excellent anesthesia distally utilizing approximately 7 cc of 1% lidocaine. Nurses irrigated the wound with greater than 1 L of normal saline and saline scrub. Amputated portion was dissected and all subcutaneous fatty tissue was dissected off. Remainder of tissue consisted of the dermis and epidermis only. The amputated portion of the finger was placed on the finger in its natural location and sutured in place utilizing 16x5 point 0 Ethilon sutures. Simple interrupted Patient will be started on Keflex 500 mg 4 times a day x7 days. Patient has been instructed to return to the ER in 24 hours so that I can reevaluate the wound. Nonadherent dressing and Neosporin ointment applied. Patient has been instructed to follow-up at [facility] or return to the ER here so that we can help him with transfer to treat hospital if he should change his mind about wanting to be seen by hand surgeon. DME note: Aluminum foam cage finger splint is being ordered secondary to fracture of his distal phalanx of left index finger. This will help protect and stabilize the fracture and the amputation that is been sutured on. This needs to be on for 10 days. 04/08 seen and evaluated by me. Patient's wound appears to be well-healing without evidence of infection or active bleeding. Patient will return tomorrow for another reevaluation by me in the ED. Number 11/2019 7:30 PM: Patient return to ED for reevaluation of his left finger avulsion. Wound appears to be well-healing with no evidence of cellulitis or infection at this time. There is no purulent drainage. Patient's autograft site with diminished sensation and pallor. I have discussed with the patient that the autograft site is being utilized as a biological barrier while his finger heals. Patient reports he is doing well with pain. Patient will return to the ER in 8 days for evaluation for possible suture removal. Definitive disposition and diagnosis as appropriate pending reevaluation and review of above. right index pain Pain Score (Numeric/FACES): 8 - Related Data Allergies Allergy/AdvReac Type Severity Reaction Status Date / Time No Known Allergies Allergy Verified 04/07/20 13:14 Home Meds: Home Meds Aspirin 81 mg PO QAM 10/01/18 [History] amLODIPine Besylate [Norvasc] 10 mg PO QAM 10/01/18 [History] hydroCHLOROthiazide [Hydrochlorothiazide] 25 mg PO QAM 10/01/18 [History] lisinopriL [Lisinopril] 10 mg PO DAILY 30 Days #30 tablet 01/05/20 [Rx] Ibuprofen [Motrin] 600 mg PO Q6H PRN 7 Days #28 tab 01/09/20 [Rx] diazePAM [Valium] 5 mg PO TID #9 tab 01/09/20 [Rx] Ibuprofen 600 mg PO Q6HR PRN #30 tablet 04/07/20 [Rx] cephALEXin [Keflex] 500 mg PO QID #40 capsule 04/07/20 [Rx] traMADol [Ultram] 50 mg PO Q6H PRN #12 tab 04/07/20 [Rx] Past Medical History HEENT History: Reports: Other (See Below) Other HEENT History: wears glasses Cardiovascular History: Reports: Hypertension Respiratory History: Reports: None Gastrointestinal History: Reports: None, Other (See Below) Genitourinary History: Reports: None Musculoskeletal History: Reports: Gout Neurological History: Reports: Concussion Psychiatric History: Reports: Anxiety Endocrine/Metabolic History: Reports: Obesity/BMI 30+ Hematologic History: Reports: None Immunologic History: Reports: None Oncologic (Cancer) History: Reports: None Dermatologic History: Reports: None - Infectious Disease History Infectious Disease History: Reports: Chicken Pox - Past Surgical History Head Surgeries/Procedures: Reports: None HEENT Surgical History: Reports: Oral Surgery, Tonsillectomy Other HEENT Surgeries/Procedures: wisdom teeth removed Cardiovascular Surgical History: Reports: None Respiratory Surgical History: Reports: None GI Surgical History: Reports: Appendectomy Male Surgical History: Reports: None Musculoskeletal Surgical History: Reports: Arthroscopic Knee Oncologic Surgical History: Reports: None Dermatological Surgical History: Reports: None Social & Family History - Family History Family Medical History: Noncontributory - Caffeine Use Caffeine Use: Reports: None - Living Situation & Occupation Living situation: Reports: Occupation: Employed Review of Systems - Review of Systems Review Of Systems: See Below ED EXAM, GENERAL - Physical Exam Exam: See Below Course - Vital Signs Last Recorded V/S: Last Vital Signs Temp 97.0 F 04/07/20 13:11 Pulse 92 04/07/20 13:11 Resp 16 04/07/20 13:11 BP 164/83 H 04/07/20 13:11 Pulse Ox 99 04/07/20 13:11 - Orders/Labs/Meds Meds: Medications Discontinued Medications Generic Name Dose Route Start Last Admin Trade Name Freq PRN Reason Stop Dose Admin Bacitracin 1 dose 04/07/20 15:04 04/07/20 15:15 Bacitracin Oint 1 Gm TOP 04/07/20 15:05 1 dose ONETIME ONE Administration Cefazolin Sodium/Dextrose 2 gm 50 mls @ 100 mls/hr 04/07/20 13:14 04/07/20 14:01 / Premix IV 04/07/20 13:43 100 mls/hr ONETIME ONE Administration Lidocaine HCl 10 ml 04/07/20 13:22 04/07/20 13:55 Xylocaine-Mpf 1% INJECT 04/07/20 13:23 10 ml ONETIME ONE Administration Departure - Departure Time of Disposition: 14:57 Disposition: Home, Self-Care 01 Condition: Good Clinical Impression: Traumatic amputation of tip of left index finger - Discharge Information Prescriptions: Ibuprofen 600 mg PO Q6HR PRN #30 tablet PRN Reason: Pain cephALEXin [Keflex] 500 mg PO QID #40 capsule traMADol [Ultram] 50 mg PO Q6H PRN #12 tab PRN Reason: Pain Instructions: Traumatic Finger Amputation, Sutured Wound Care Referrals: PCP,None [Primary Care Provider] - Forms: ED Department Discharge Additional Instructions: 1. Please go to [facility] in [place] if you change your mind and want evaluation by a hand surgeon. Please return to the ER here at any time if you would change her mind and would want assistance from us to transfer you up to [facility] to be evaluated by the hand surgeon there. 2 you have been given a prescription for Keflex 500 mg to take 4 times a day for 10 days. 3. Please keep the finger splint on to assist with appropriate healing. You will have Neosporin and a nonadherent dressing placed on the wound. 4. Please return to the ER tomorrow between 7 AM and 7 PM to be evaluated by me. You do not need to be checked and I will just evaluate your wound quickly. Please have the registration call me so I can evaluate your wound. The following information is given to patients seen in the emergency department who are being discharged to home. This information is to outline your options for follow-up care. We provide all patients seen in our emergency department with a follow-up referral. The need for follow-up, as well as the timing and circumstances, are variable depending upon the specifics of your emergency department visit. If you don't have a primary care physician on staff, we will provide you with a referral. We always advise you to contact your personal physician following an emergency department visit to inform them of the circumstance of the visit and for follow-up with them and/or the need for any referrals to a consulting spec ialist. The emergency department will also refer you to a specialist when appropriate. This referral assures that you have the opportunity for follow-up care with a specialist. All of these measure are taken in an effort to provide you with optimal care, which includes your follow-up. [facility] - Primary Care [address] [place] [address] [address] Under all circumstances we always encourage you to contact your private physician who remains a resource for coordinating your care. When calling for follow-up care, please make the office aware that this follow-up is from your recent emergency room visit. If for any reason you are refused follow-up, please contact the [facility] Emergency Department at and asked to speak to the emergency department charge nurse. Sepsis Event Note (ED) - Evaluation Sepsis Screening Result: No Definite Risk
[2020-04-07] MEDS ORDERED: Bacitracin Oint 1 GM U/D Packet TOP ONE (15:04)
== END 2020-04-07 15:25 | disposition home or self-care (01) ==
LOC: MW.ED 12:55
DX: S68.621A Partial traumatic transphalangeal amputation of left index finger, initial encounter (principal); I10 Essential (primary) hypertension; E66.9 Obesity, unspecified; Z90.49 Acquired absence of other specified parts of digestive tract; Z79.899 Other long term (current) drug therapy; W23.0XXA Caught, crushed, jammed, or pinched between moving objects, initial encounter; Y99.0 Civilian activity done for income or pay
CPT/HCPCS: 26951; 73140; 96365; 99283; J0690; J2001

== ENCOUNTER 2020-04-22 12:18 | Emergency (ER) | payer OTHER, BC | END 2020-04-22 12:57 | disposition left against medical advice (07) | LOC: MW.ED 12:18 | DX: S61.201D Unspecified open wound of left index finger without damage to nail, subsequent encounter (principal); X58.XXXD Exposure to other specified factors, subsequent encounter | CPT/HCPCS: 99281 ==